=== PATIENT | female | born 1985 | race Caucasian/White ===

== ENCOUNTER 2017-03-19 05:55 | Day surgery (SDC) | payer BC, SELFPAY ==
[~2017-03-19] VITALS: Ht 172.7 cm; Wt 157.8 kg
[~2017-03-19 05:55] MED LIST: AZITHROMYCIN250 MG; CHERATUSSIN AC118 ML PO; LEXAPRO20 MG PO; METFORMIN HCL500 M2; PREDNISONE20 MG PO
--- NOTE | 2017-03-19 08:56 | NUR ---
03/19/17 0855 Flavia Cronin report from irrigation specialist.
--- NOTE | 2017-03-19 09:46 | NUR ---
PUDDING AND ICED WATER GIVEN. PAM MORAN ON WARM. MOTHER @ BS. PT TEARFUL UPON ARRIVAL BACK TO .
--- NOTE | 2017-03-19 09:55 | NUR ---
PT AWAKE AND ALERT TALKING W/MOTHER. FOSTER CATHETER BALLOON DEFLATED W/10 ML NS AND FOSTER DC WNL. SMALL AMOUNT OF BLOOD NOTED ON END OF FOSTER LUMEN. PT EATS PUDDING AND TOLERATES IT WELL.
--- NOTE | 2017-03-19 10:22 | NUR ---
PT UP TO BR AFTER PLACING OWN UNDERWEAR. PT AMBULATES TO BR WELL. PT VOIDS 400 ML PINK COLORED URINE AND IS BACK IN BED. PAM HUGGER CONTINUES ON WARM AND SCDS ON.
--- NOTE | 2017-03-19 10:51 | NUR ---
MORE ICED WATER GIVEN.
--- NOTE | 2017-03-19 11:45 | NUR ---
amb well to br voids 400 mls pink urine. returned to bed has family assist.
[2017-03-19] MEDS ORDERED: MOTRIN IB200 MG PO (12:05)
[2017-03-19] MEDS ORDERED: NORCO 5-325 TA1 EACH PO (12:05)
--- NOTE | 2017-03-19 12:25 | NUR ---
LE 1215: PT DRESSES SELF W/ASSIST OF MOTHER. PT AMBULATES TO THE BR AND VOIDS 500 ML PALE PINK URINE. PT TRANSFERS SELF FROM BED TO WELL AND IS DC HOME W/MOTHER AFTER VERBAL DC INSTRUCTIONS ARE GIVEN AND BOTH PT AND MOTHER VERBALIZE UNDERSTANDING.
--- NOTE | 2017-04-08 12:43 | OR ---
[facility] [address] [place], [place] [address] Signed PREOPERATIVE DIAGNOSES Abnormal uterine bleeding. Dysmenorrhea. Morbid obesity. POSTOPERATIVE DIAGNOSES Extensive deep infiltrating endometriosis. Abnormal uterine bleeding. Dysmenorrhea. Morbid obesity. PROCEDURES PERFORMED Hysteroscopy. Dilation and curettage. Diagnostic laparoscopy. SURGEON: Delisa Hurley DO ALUM OPERATOR: Puneet Thurston MD ANESTHESIA: General. ESTIMATED BLOOD LOSS: 5 mL. SPECIMENS: Endometrial curettings. FINDINGS Normal external genitalia. Small well-supported cervix with uterine length of 11 cm. On hysteroscopy, normal-appearing endometrium and uterine cavity with normal bilateral tubal ostia. On laparoscopy, there was an extensive deep infiltrating endometriosis throug hout the pelvis with most concerning lesions over the bladder at the descending colon. The cul-de-sac bilateral ovarian fossa. COMPLICATIONS: None. INDICATIONS Ms. Oconnor is a pleasant 31-year-old G0 white female, who presents with a history of heavy painful periods. This started in her early teens. The pain started several days prior to her period and lasts until the end of the bleeding. She also complains of severe dyspareunia and she has been told in the past that she likely has endometriosis, but has never undergone diagnostic laparoscopy. Decision was made to take the patient for hysteroscopy, D and C, and diagnostic laparoscopy. Risks, benefits, alternatives Electronically Signed By: DELISA HURLEY DO 04/08/17 1243 PATIENT NAME: CARMEL OCONNOR OPERATIVE REPORT DATE OF : [birth year] PHYSICIAN: DELISA HURLEY DO REPORT #: [id number] REPORT IS CONFIDENTIAL AND NOT TO BE RELEASED WITHOUT AUTHORIZATION [facility] [address] [place], [place] [address] Signed were discussed in detail with the patient. Patient understands the risks and wished to proceed with the procedure. TECHNIQUE The patient was taken the operating room. Time-out was performed to confirm correct patient, correct procedure and general anesthesia was adequately established. Patient was prepped and draped in dorsal lithotomy position and yellow fin stirrups. ICPs on and running, and no preop antibiotics were indicated per skip protocol. A weighted speculum was placed in the vagina and the anterior lip of the cervix was grasped with single-tooth tenaculum. The cervix was gently dilated using Hegar dilators and an operative hysteroscope was placed into the cervical os and advanced under direct visualization to the uterine cavity. Normal appearing uterine cavity and endometrium were observed. Uterine length was 11 cm. A biopsy of the endometrium was performed using MyoSure like device and this was sent to Pathology for further evaluation. The hysteroscope was withdrawn and a uterine manipulator was placed. A Shen catheter had been inserted at the beginning of the procedure. The surgeon's gloves were changed and the attention was turned to the abdomen. The base of the umbilicus was infiltrated with 5 mL of 0.25% Marcaine with epinephrine. A 5-mm incision was made at the base of the umbilicus and a 5-mm trocar was placed under direct visualization. This was accomplished by placing bilateral penetrating towel clamps, elevating the umbilicus and advancing under direct visualization. This was made difficult due to the patient's obesity; however, no complication was noted. After pneumoperitoneum was established, a survey of the abdomen and pelvis was performed. Extensive deep infiltrating endometriosis was noted throughout the pelvis. However, especially concentrated over the bladder in the descending colon at the cul-de-sac and bilateral ovarian fossa. The appendix was unable to be visualized and decision was made to not place additional trocars as excision of endometriosis was not going to be attempted at this time. There was a simple appearing cyst on the left ovary approximately 2 cm in diameter. The upper abdomen appears normal. Pneumoperitoneum was reduced, the trocar is removed and trocar site was repaired with 4-0 Monocryl in a subcuticular stitch. Opsite was applied as a dressing. The uterine manipulator was removed and the cervix was examined and found to be hemostatic. The patient was taken the PACU in good stable condition. Sponge, needle, and instrument count was correct at the end of the procedure. Dr. Puneet Thurston was present and participated in all portions of procedure. Delisa Hurley DO JDW/Modl Electronically Signed By: DELISA HURLEY DO 04/08/17 1243 PATIENT NAME: CARMEL OCONNOR GRIFFIN OPERATIVE REPORT DATE OF : 86 PHYSICIAN: DELISA HURLEY DO REPORT #: [id number] REPORT IS CONFIDENTIAL AND NOT TO BE RELEASED WITHOUT AUTHORIZATION [facility] [address] [place] [address] Signed /[id number] cc: MD Genevieve Donahue PA-C Electronically Signed By: DELISA HURLEY DO 04/08/17 1243 PATIENT NAME: ELVINCARMEL OPERATIVE REPORT DATE OF : 87 PHYSICIAN: DELISA HURLEY DO REPORT #: [id number] REPORT IS CONFIDENTIAL AND NOT TO BE RELEASED WITHOUT AUTHORIZATION
== END 2017-03-19 12:20 | disposition home or self-care (01) ==
LOC: DS 05:55
PROVIDERS: Obstetrics & Gynecology
PROC: 0UDB8ZX Extraction of Endometrium, Via Natural or Artificial Opening Endoscopic, Diagnostic (ICD-10-PCS; principal; 2017-03-19 06:45)
PROC: 0WJP4ZZ Inspection of Gastrointestinal Tract, Percutaneous Endoscopic Approach (ICD-10-PCS; 2017-03-19 06:45)
DX: N93.9 Abnormal uterine and vaginal bleeding, unspecified (principal); E66.01 Morbid (severe) obesity due to excess calories; Z68.43 Body mass index [BMI] 50.0-59.9, adult; F32.9 Major depressive disorder, single episode, unspecified; G40.909 Epilepsy, unspecified, not intractable, without status epilepticus
CPT/HCPCS: 00952; 84703; J0330; J1100; J2250; J2405; J2704; J3010; J7120

== ENCOUNTER 2018-09-10 11:02 | Inpatient (IN) | payer OTHER ==
[~2018-09-10 11:02] MED LIST changes: +MOTRIN IB200 MG PO; +NORCO 5-325 TA1 EACH PO
--- NOTE | 2018-09-10 13:14 | PR ---
[facility] [address] [place], [place] [address] Signed Progress Notes IP Datetime Report Generated by CPN: 09/10/2018 13:14 PROGRESS NOTES: [id number] Impression: Reassuring heart rate Procedures: Sterile Vag Exam Plan: Deliver- Section Informed Consent Obtain: Section Delivery; Risks, Benefits and Alternatives Discussed VITAL SIGNS: [id number] Vital Signs: Reviewed VS Notable Details: BPs no longer severe range. EXAM: [id number] Dilatation: 0.0 Effacement: 0 Station: -4 Uterine Contractions: none MEMBRANES: [id number] Membrane Status: Intact Comments: BPs controlled w/ labetalol. No JONES, RUQ pain, or visual changes. Serologies returned and normal. Cervix unfavorable, head not well applied, and unstable lie. Recommend primary LTCS. Reviewed risks/benefits/alternatives in detail w/ pt. Pt understands and agrees. Fetus A: [id number] FHR Baseline: 130 Variability: Moderate 6-25bpm Accelerations: None Decelerations: None FHR Category: Category I Presentation: Vertex Other Presentation: Unstable lie Comments on Fetus A: No evidence of metabolic acidosis Fetus B: [id number] Signing Physician: Delisa Hurley DO Copies: ~ *Electronically Signed* 09/10/18 1313 DELISA HURLEY DO PATIENT NAME: CARMEL OCONNOR PROGRESS NOTE DATE OF : 87 PHYSICIAN: DELISA HURLEY DO RPT #: [id number] REPORT IS CONFIDENTIAL AND NOT TO BE RELEASED WITHOUT AUTHORIZATION
--- NOTE | 2018-09-10 13:35 | PR ---
[facility] [address] [facility] [place], [place] [address] Signed Progress Notes IP Datetime Report Generated by CPN: 09/10/2018 13:35 PROGRESS NOTES: [id number] Impression: Reassuring heart rate Procedures: Sterile Vag Exam Plan: Continue present management Informed Consent Obtain: Section Delivery; Risks, Benefits and Alternatives Discussed VITAL SIGNS: [id number] Vital Signs: Reviewed VS Notable Details: BPs again elevated into severe range EXAM: [id number] Dilatation: 0.0 Effacement: 0 Station: -4 Uterine Contractions: none MEMBRANES: [id number] Membrane Status: Intact Comments: BPs elevated. Will give labetalol 80mg IV now. No JONES, RUQ pain, or visual changes. Preparing for C/S soon. Fetus A: [id number] FHR Baseline: 130 Variability: Moderate 6-25bpm Accelerations: 15X15 Decelerations: None FHR Category: Category I Presentation: Vertex Other Presentation: Unstable lie Comments on Fetus A: No evidence of metabolic acidosis Fetus B: [id number] Signing Physician: Delisa Hurley DO Copies: ~ *Electronically Signed* 09/10/18 8732 DELISA HURLEY DO PATIENT NAME: CARMEL OCONNOR PROGRESS NOTE DATE OF : [birth year] PHYSICIAN: DELISA HURLEY DO RPT #: [id number] REPORT IS CONFIDENTIAL AND NOT TO BE RELEASED WITHOUT AUTHORIZATION
--- NOTE | 2018-09-10 15:25 | NUR ---
09/10/18 [facility] [address] - PT ARRIVES IN ROOM 104 ON FBC FROM OR. PT ON RA WITH SATS 100%. RESP EVEN, UNLABORED. FF @ U WITH LIGHT BLEEDING NOTED. PT DENIES PAIN/NAUSEA. PT PROVIDED WITH WARM BLANKETS AND FRESH ZIGGY PAD. FAMILY IN ROOM.
--- NOTE | 2018-09-10 17:41 | PR ---
[facility] [address] [facility] [place], [place] [address] Signed PP Progress Notes Datetime Report Generated by CPN: 09/10/2018 17:41 SUBJECTIVE: [id number] Pain: Within normal limits Nausea/Vomiting: Denies Flatus: No Bowel Movement: No Vital Signs: [id number] Vital Signs: Reviewed; Within Normal Limits Notable Details: No recent severe BPs. EXAM: [id number] Cardiovascular: Normal Respiratory: Normal Abdomen/Uterus: Normal Lochia: Normal Vulva/Perineum: Not Done Breasts: Not Done CVA Tenderness: Normal Extremities: Normal Exam Comments: Fundus firm U-2 nontender IMPRESSION/PLAN/PROCEDURES: [id number] Impression: Induced Hypertension Progress Notes: Pt seen and evaluated. Doing well. BPs controlled. No JONES, RUQ pain, or visual changes. Mag @ 2g/hr. Good urine output. Will continue to monitor pressures, labs, and progress. Signing Physician: Delisa Hurley DO Copies: ~ *Electronically Signed* 09/10/18 1742 DELISA HURLEY DO PATIENT NAME: CARMEL OCONNOR GRIFFIN PROGRESS NOTE DATE OF : 86 PHYSICIAN: DELISA HURLEY DO RPT #: [id number] REPORT IS CONFIDENTIAL AND NOT TO BE RELEASED WITHOUT AUTHORIZATION
--- NOTE | 2018-09-11 08:44 | PR ---
[facility] [address] [place], [place] [address] Signed PP Progress Notes Datetime Report Generated by CPN: 09/11/2018 08:44 SUBJECTIVE: [id number] Pain: Within normal limits Nausea/Vomiting: Denies Flatus: Yes Bowel Movement: No Vital Signs: [id number] Vital Signs: Reviewed Notable Details: BPs controlled overnight with one severe range BP. Good urine output. EXAM: [id number] Cardiovascular: Normal Respiratory: Normal Abdomen/Uterus: Normal Lochia: Normal Vulva/Perineum: Not Done Breasts: Not Done CVA Tenderness: Normal Extremities: Normal Incision: Normal Progress: Abnormal Exam Comments: Fundus difficult to palpate due to obesity. Incision well healing w/ anette in place. IMPRESSION/PLAN/PROCEDURES: [id number] Impression: Induced Hypertension Plan: Continue present management Progress Notes: Pt seen and examined. Doing well. Mag therapeutic, blood pressures improved. Pt did have transient decrease in plts overnight but now improved. LFTs and creat normal. Good urine output. No JONES, RUQ pain, or visual changes. Appears PreE is much improved; will likely be able to d/c mag @ 14:00 today as planned. w/ some difficulties and is working closely w/ RN for support. Incision healing well, and pain and bleeding scant. All questions answered. Signing Physician: Delisa Hurley DO Copies: ~ *Electronically Signed* 09/11/18 0844 DELISA HURLEY DO PATIENT NAME: CARMEL OCONNOR GRIFFIN PROGRESS NOTE DATE OF : 86 PHYSICIAN: DELISA HURLEY DO RPT #: [id number] REPORT IS CONFIDENTIAL AND NOT TO BE RELEASED WITHOUT AUTHORIZATION
--- NOTE | 2018-09-12 12:37 | PR ---
[facility] [address] [place], [place] [address] Signed PP Progress Notes Datetime Report Generated by CPN: 09/12/2018 12:37 SUBJECTIVE: [id number] Pain: Within normal limits Nausea/Vomiting: Denies Flatus: Yes Bowel Movement: Yes Vital Signs: [id number] Vital Signs: Reviewed Notable Details: two severe range bps last night while pt active; Much improved today. EXAM: [id number] Cardiovascular: Normal Respiratory: Normal Abdomen/Uterus: Normal Lochia: Normal Vulva/Perineum: Not Done Breasts: Not Done CVA Tenderness: Normal Extremities: Normal Incision: Normal Progress: Normal Exam Comments: Fundus difficult to palpate due to body habitus. Incision well healing w/ anette in place. Pt up to chair w/ IMPRESSION/PLAN/PROCEDURES: [id number] Impression: Normal progression; Induced Hypertension Plan: Continue present management Progress Notes: Pt seen and examined. Doing well. Ambulating, voiding, and tolerating full diet. Pain and lochia minimal. and bottlefeeding and working closely w/ RN for support. No fevers/chills/lightheadedness. No JONES, RUQ pain, or visual changes. No other concerns. Anticipate d/c home tomorrow w/ BP check 48 hr after discharge. Likely will not have to start oral hypertensives, but will continue to monitor. All questions answered Signing Physician: Delisa Hurley DO Copies: ~ *Electronically Signed* 09/12/18 1843 DELISA HURLEY DO PATIENT NAME: OCONNORCARMEL LEE PROGRESS NOTE DATE OF : 86 PHYSICIAN: DELISA HURLEY #: [id number] REPORT IS CONFIDENTIAL AND NOT TO BE RELEASED WITHOUT AUTHORIZATION
--- NOTE | 2018-09-13 10:24 | PR ---
[facility] [address] [place], [place] [address] Signed PP Progress Notes Datetime Report Generated by CPN: 09/13/2018 10:24 SUBJECTIVE: [id number] Pain: Within normal limits Nausea/Vomiting: Denies Flatus: Yes Bowel Movement: Yes Vital Signs: [id number] Vital Signs: Reviewed Notable Details: BPs somewhat labile EXAM: [id number] Cardiovascular: Normal Respiratory: Normal Abdomen/Uterus: Normal Lochia: Normal Vulva/Perineum: Not Done Breasts: Not Done CVA Tenderness: Normal Extremities: Normal Incision: Normal Progress: Normal Exam Comments: Fundal exam limited by obesity. Incision well healing w/ anette in place IMPRESSION/PLAN/PROCEDURES: [id number] Impression: Normal progression; Induced Hypertension Plan: Discharge Progress Notes: Pt seen and examined. Doing well. Ambulating, voiding, and tolerating full diet. Pain and lochia minimal. No JONES, RUQ pain, or visual changes. BPs somewhat labile. No fevers/chills or other concerns. Unsure of pp contraception, but not currently sexually active. Desires d/c home today. Plan: d/c home. Return to office in 2 days for BP check and staple removal. Start procardia XL 30 mg daily. Reviewed s/sx of preE, and VTE. All questions answered. Mother very supportive Signing Physician: Delisa Hurley DO Copies: *Electronically Signed* 09/13/18 [facility] DELISA HURLEY DO PATIENT NAME: CARMEL OCONNOR PROGRESS NOTE DATE OF : 86 PHYSICIAN: DELISA HURLEY DO RPT #: [id number] REPORT IS CONFIDENTIAL AND NOT TO BE RELEASED WITHOUT AUTHORIZATION [address] [place] [address] Signed ~ *Electronically Signed* 09/13/18 [facility] DELISA HURLEY DO PATIENT NAME: CARMEL OCONNOR PROGRESS NOTE DATE OF : [birth year] PHYSICIAN: DELISA HURLEY DO RPT #: [id number] REPORT IS CONFIDENTIAL AND NOT TO BE RELEASED WITHOUT AUTHORIZATION
--- NOTE | 2018-10-24 11:38 | OR ---
[address] [address] Signed DATE OF OPERATION: 09/10/2018 SURGEON: Delisa Hurley DO PREOPERATIVE DIAGNOSES: 1. Intrauterine at 36 weeks and 1 day gestation. 2. Preeclampsia with severe features. 3. Polyhydramnios with unstable lie. 4. Morbid obesity. 5. Unfavorable cervix. POSTOPERATIVE DIAGNOSES: 1. Intrauterine at 36 weeks and 1 day gestation. 2. Preeclampsia with severe features. 3. Polyhydramnios with unstable lie. 4. Morbid obesity. 5. Unfavorable cervix. PROCEDURES PERFORMED: Primary low transverse delivery. FRAME CHANGER: Shreya Jensen MD. ANESTHESIA: Spinal. ESTIMATED BLOOD LOSS: 500 mL. COMPLICATIONS: None. SPECIMENS: None. FINDINGS: Viable female born in the KATRINA position with subjective polyhydramnios. Apgars 8 and 9 at one and five minutes respectively and weight 6 pounds 12 ounces. Estimated blood loss 500 mL. Normal tubes and ovaries. Electronically Signed By: DELISA HURLEY DO 10/24/18 1138 PATIENT NAME: CARMEL OCONNOR OPERATIVE REPORT DATE OF : 87 REPORT #: [id number] PHYSICIAN: DELISA HURLEY DO PCP: DELISA HURLEY DO REPORT IS CONFIDENTIAL AND NOT TO BE RELEASED WITHOUT AUTHORIZATION [address] [address] Signed INDICATIONS: Ms. Oconnor is a pleasant 32-year-old G1, P0, with IUP at 36 weeks and 1 day gestation, who presented to Labor and Delivery for a scheduled nonstress test due to polyhydramnios. She was seen in the office yesterday and had normal blood pressures and no proteinuria. Upon presentation to Labor and Delivery today for NST, the patient was noted to have persistent severe range blood pressures that were resistant to IV labetalol. Blood pressures were finally controlled with 80 mg of labetalol IV. Otherwise, the patient was asymptomatic. She had no headache, right upper quadrant pain, or visual changes. Labs were normal. The patient had been breech earlier this week, but bedside ultrasound was performed that demonstrated cephalic positioning. Cervix was closed, thick, and high, and head was not well applied. Decision was made to proceed with primary low transverse delivery due to new onset severe blood pressures consistent with severe preeclampsia, unfavorable cervix, and variable lie. Risks, benefits, and alternatives were discussed in detail with the patient. The patient understands and wishes to proceed with the procedure. She was given magnesium per protocol preoperatively. TECHNIQUE: The patient was taken to the operating room where a time-out was performed to confirm correct patient and correct procedure. Again, blood pressures were well controlled with IV labetalol and magnesium sulfate had been bolused and was running. Spinal anesthesia was adequately established and the patient was prepped and draped in the supine position with a bump under the right hip. Ancef 3 g was given preoperatively per SCIP protocol and heparin 5000 units given as well. ICPs were on and running and a Shen catheter had been inserted. Once spinal anesthetic was found to be adequate, a Pfannenstiel skin incision was made using a surgical scalpel. Incision was carried down to the fascia and the fascia was nicked in medial to midline. Fascial incision was extended bilaterally using curved Mckay scissors. Small amount of bleeding was made hemostatic with Bovie electrocautery. The fascia was grasped with Kochers, elevated, underlying rectus muscles were dissected bluntly and sharply. The rectus muscles were then divided in the midline. The peritoneum was entered bluntly. Peritoneal incision was extended cephalad and caudad using Mckay scissors. Survey of the abdomen and pelvis was performed, and no intraabdominal adhesions were noted. An Malcolm self retractor was placed. Lower uterine segment identified. Hysterotomy was performed using a surgical scalpel. Small amount of bleeding was noted and Allis clamps were placed and elevated and hysterotomy was completed. Amniotic sac was seen with clear fluid. The amniotic sac was then ruptured. The surgeon's hand was placed into the lower uterine segment after the hysterotomy was extended bilaterally using blunt dissection and the head was Electronically Signed By: DELISA HURLEY DO 10/24/18 1138 PATIENT NAME: CARMEL OCONNOR OPERATIVE REPORT DATE OF : 86 REPORT #: [id number] PHYSICIAN: DELISA HURLEY DO PCP: DELISA HURLEY DO REPORT IS CONFIDENTIAL AND NOT TO BE RELEASED WITHOUT AUTHORIZATION [address] [address] Signed elevated into the abdomen. Delivery of the head was accomplished with assistance of fundal pressure. No nuchal cord was noted. Baby delivered in a KATRINA position. Remainder of the baby delivered easily. Large amount of clear amniotic fluid was noted consistent with polyhydramnios. was vigorous and cried at delivery. Cord was doubly clamped and cut. The was handed to awaiting pediatric team for further care. Cord blood was obtained for routine analysis as well as a segment of the cord. The placenta was then expressed intact with a centrally inserted three-vessel cord. The uterus was cleared of all remaining products of conception or clot and noted to be firm. Pitocin was given per protocol to enhance uterine involution. Hysterotomy was then repaired using 0 Vicryl in a running locked manner again using 0 Vicryl. The second vertical imbricating layer of 0 Vicryl was applied with good hemostasis and imbrication. Small amount of oozing was noted. This was made hemostatic with Bovie electrocautery and one svmakl-[id number]-gqwmy of 0 Vicryl. The pelvis was irrigated and found to be hemostatic. Arixtra was then applied to lower uterine segment to ensure hemostasis. Tubes and ovaries were examined bilaterally and found to be normal. The Malcolm retractor was removed and the lower uterine segment again noted to be hemostatic. ACell sheet was applied to the lower uterine segment and peritoneum was then reapproximated using 2-0 Vicryl in a running nonlocked manner. The rectus muscles were examined, found to be hemostatic and these were reapproximated using 0 Vicryl and three loose interrupted sutures. ACell powder and remaining Arixtra were applied to the rectus sheath with good hemostasis noted. Fascia was then reapproximated using 0 Vicryl in a running nonlocked manner. Subcu was irrigated and found to be hemostatic after use of Bovie electrocautery. Subcu was reapproximated using 2-0 Vicryl in 2 separate layers with good hemostasis noted. Skin was then reapproximated using surgical anette. The uterus was then Crede'd for small amount of blood. The patient was then taken to PACU in good and stable condition. Of note, blood pressures were well controlled throughout surgery without additional IV labetalol needed. Sponge, needle, and instrument count was correct x2 at the end of procedure. Dr. Jensen was present and participated in all portions of the procedure. Delisa Hurley DO JDW/MODL /[id number] Electronically Signed By: DELISA HURLEY DO 10/24/18 1138 PATIENT NAME: OCONNORCARMEL OPERATIVE REPORT DATE OF : 86 REPORT #: [id number] PHYSICIAN: DELISA HURLEY DO PCP: DELISA HURLEY DO REPORT IS CONFIDENTIAL AND NOT TO BE RELEASED WITHOUT AUTHORIZATION [address] [place] [address] Signed Copies: ~ Electronically Signed By: DELISA HURLEY DO 10/24/18 1138 PATIENT NAME: ELVINCARMEL OPERATIVE REPORT DATE OF : 86 REPORT #: [id number] PHYSICIAN: DELISA HURLEY DO PCP: DELISA HURLEY DO REPORT IS CONFIDENTIAL AND NOT TO BE RELEASED WITHOUT AUTHORIZATION
== END 2018-09-13 15:40 | disposition home or self-care (01) | DRG 788 ==
LOC: FBCO 11:02 → FBC 12:15
PROVIDERS: ADMIT Obstetrics & Gynecology
PROC: 10D00Z1 Extraction of Products of Conception, Low, Open Approach (ICD-10-PCS; principal; 2018-09-10 14:00)
DX: O14.94 Unspecified pre-eclampsia, complicating childbirth (principal); Z3A.36 36 weeks gestation of pregnancy; Z37.0 Single live birth; O40.3XX0 Polyhydramnios, third trimester, not applicable or unspecified; O99.214 Obesity complicating childbirth; E66.01 Morbid (severe) obesity due to excess calories; O32.0XX0 Maternal care for unstable lie, not applicable or unspecified; O60.14X0 Preterm labor third trimester with preterm delivery third trimester, not applicable or unspecified; O99.824 Streptococcus B carrier state complicating childbirth; O36.63X0 Maternal care for excessive fetal growth, third trimester, not applicable or unspecified; O99.344 Other mental disorders complicating childbirth; F41.9 Anxiety disorder, unspecified; O99.324 Drug use complicating childbirth; F12.90 Cannabis use, unspecified, uncomplicated; O99.52 Diseases of the respiratory system complicating childbirth; J45.909 Unspecified asthma, uncomplicated
CPT/HCPCS: 01961; 36415; 59025; 80053; 82570; 83735; 84156; 84550; 85025; C1763; J0690; J1644; J1650; J1885; J2274; J2370; J2405; J2590; J3010; J3475; J7120

== ENCOUNTER 2019-03-03 07:05 | Day surgery (SDC) | payer OTHER ==
[~2019-03-03] VITALS: Ht 172.7 cm; Wt 173.3 kg
[~2019-03-03 07:05] MED LIST changes: +PRENATAL VITAM1 EAC8 PO; +VITAMIN D10000 UNIT PO; +ZOLOFT100 MG PO
[2019-03-03] MEDS ORDERED: KEFLEX500 MG PO (07:21)
--- NOTE | 2019-03-09 11:45 | OR ---
[facility] [address] [place], [place] [address] Signed DATE OF OPERATION: 03/03/2019 SURGEON: Delisa Hurley DO PREOPERATIVE DIAGNOSES: 1. Malpositioned IUD. 2. Morbid obesity with BMI of 58. POSTOPERATIVE DIAGNOSES: 1. Malpositioned IUD. 2. Morbid obesity with BMI of 58. PROCEDURE PERFORMED: Hysteroscopic removal of malpositioned IUD. ASSOCIATE SCHOOL PSYCHOLOGIST: Puneet Thurston MD for retraction. ANESTHESIA: General. ESTIMATED BLOOD LOSS: 0 mL. FINDINGS: Morbid obesity. Excellent apical support of the vagina. Normal vagina and cervix. On hysteroscopy, IUD strings noted 1-2 cm into the cervical canal. The IUD is noted low and lateral in the uterine cavity with one arm slightly embedded into the endometrium/myometrium. The IUD was easily removed with hysteroscopic graspers. HEMOSTASIS: At the end of the procedure. COMPLICATIONS: None. INDICATIONS: Ms. Oconnor is a pleasant 33-year-old, G1, P1 white female who had an IUD placed . She has not been sexually active since delivery. One month IUD followup visit, IUD strings were not seen. An ultrasound was performed that demonstrated Electronically Signed By: DELISA HURLEY DO 03/09/19 1145 PATIENT NAME: CARMEL OCONNOR OPERATIVE REPORT DATE OF : 87 REPORT #: [id number] PHYSICIAN: DELISA HURLEY DO PCP: ESTEFANIA LOPEZ MD REPORT IS CONFIDENTIAL AND NOT TO BE RELEASED WITHOUT AUTHORIZATION [facility] [address] [facility] [place] [place] [address] Signed malpositioning of the IUD. Attempts to remove it in the office were unsuccessful and decision was made to proceed with hysteroscopic removal of malpositioned IUD. Risks, benefits, and alternatives were discussed in detail with the patient. The patient understands and wished to proceed with the procedure. DESCRIPTION OF PROCEDURE: The patient was taken to the operating room where a time-out was performed to confirm correct patient and correct procedure. General anesthesia was adequately established. The patient was prepped and draped in the dorsal lithotomy position with the feet in Yellowfin stirrups. ICPs were on running and no preop antibiotics or heparin were indicated. A Fenton retractor was placed in the vagina and the anterior lip of the cervix was grasped with a long Allis clamp. The cervix was gently dilated using Hegar dilators to a #7. An operative hysteroscope was placed in the cervical os and advanced under direct visualization. Approximately 1-2 cm into the cervical canal, IUD strings were observed. The hysteroscope was slowly inserted along the cervical canal into the uterine cavity. The IUD was noted low and lateral in the uterine cavity with the left arm slightly embedded into the endometrium/myometrium. Hysteroscopic graspers were placed through the operative port of the hysteroscope. The base of the IUD was grasped, and the hysteroscope and IUD were withdrawn. The IUD was noted to be intact and was removed. This was not sent to pathology. The cervix was found to be hemostatic and the patient was taken to the PACU in good and stable condition after removing the Allis clamp. Sponge and instrument count was correct at the end the procedure. Dr. Thurston was present and participated for retraction that was necessary due to the patient's BMI. Delisa Hurley DO JDW/MODL /[id number] Copies: ~ Electronically Signed By: DELISA HURLEY DO 03/09/19 1145 PATIENT NAME: CARMEL OCONNOR OPERATIVE REPORT DATE OF : 87 REPORT #: [id number] PHYSICIAN: DELISA HURLEY DO PCP: ESTEFANIA LOPEZ MD REPORT IS CONFIDENTIAL AND NOT TO BE RELEASED WITHOUT AUTHORIZATION
== END 2019-03-03 11:00 | disposition home or self-care (01) ==
LOC: OPS 07:05 → DS 07:05 → OPS 08:45
PROVIDERS: Obstetrics & Gynecology
PROC: 0UC98ZZ Extirpation of Matter from Uterus, Via Natural or Artificial Opening Endoscopic (ICD-10-PCS; principal; 2019-03-03 08:45)
DX: T83.39XA Other mechanical complication of intrauterine contraceptive device, initial encounter (principal); E66.01 Morbid (severe) obesity due to excess calories; F32.9 Major depressive disorder, single episode, unspecified; E55.9 Vitamin D deficiency, unspecified; J45.909 Unspecified asthma, uncomplicated; F41.9 Anxiety disorder, unspecified; Z68.43 Body mass index [BMI] 50.0-59.9, adult; Z79.899 Other long term (current) drug therapy
CPT/HCPCS: 00940; J1100; J1885; J2250; J2405; J2704; J2765; J3010; J7120

== ENCOUNTER 2022-02-18 18:31 | Emergency (ER) | payer OTHER ==
[~2022-02-18] VITALS: Ht 172.7 cm; Wt 173.3 kg
[~2022-02-18 18:31] MED LIST changes: +KEFLEX500 MG PO
[2022-02-18] MEDS ORDERED: ARIPIPRAZOLE5 MG PO (19:05)
[2022-02-18] MEDS ORDERED: LISINOPRIL10 MG PO (19:05)
[2022-02-18] MEDS ORDERED: BUSPIRONE HCL15 MG PO (19:05)
[2022-02-18] MEDS ORDERED: NORETHINDRONE AC5 MG PO (19:05)
[2022-02-18] MEDS ORDERED: TRAZODONE HCL100 MG PO (19:05)
[2022-02-18] MEDS ORDERED: MINOCYCLINE HCL50 M1 PO (19:05)
[2022-02-18] MEDS ORDERED: ATIVAN0.5 MG PO (21:50)
== END 2022-02-18 21:58 | disposition home or self-care (01) ==
LOC: ED 18:31
DX: G40.109 Localization-related (focal) (partial) symptomatic epilepsy and epileptic syndromes with simple partial seizures, not intractable, without status epilepticus (principal); Z79.899 Other long term (current) drug therapy
CPT/HCPCS: 36415; 70450; 80053; 81001; 82553; 83690; 84146; 84703; 85025; 96374; 99284-25; J2060

== ENCOUNTER 2023-02-16 12:04 | Emergency (ER) | payer OTHER ==
[~2023-02-16] VITALS: Ht 172.7 cm; Wt 193.2 kg
[~2023-02-16 12:04] MED LIST changes: +ARIPIPRAZOLE5 MG PO; +ATIVAN0.5 MG PO; +BUSPIRONE HCL15 MG PO; +LISINOPRIL10 MG PO; +MINOCYCLINE HCL50 M1 PO; +NORETHINDRONE AC5 MG PO; +TRAZODONE HCL100 MG PO
[2023-02-16] MEDS ORDERED: TOPIRAMATE100 MG PO (12:10)
[2023-02-16 14:09] VITALS: BP 142/83
== END 2023-02-16 14:05 | disposition home or self-care (01) ==
LOC: ED 12:04
DX: R56.9 Unspecified convulsions (principal); Z79.899 Other long term (current) drug therapy
CPT/HCPCS: 80053; 85025; 99284; G0480

== ENCOUNTER 2023-05-31 10:36 | Emergency (ER) | payer OTHER ==
[~2023-05-31] VITALS: Ht 172.7 cm; Wt 189.6 kg
[~2023-05-31 10:36] MED LIST changes: +TOPIRAMATE100 MG PO
[2023-05-31 12:41] VITALS: BP 148/98
[2023-06-01 09:47] LABS: TOPIRAMATE 11.6 ug/mL (5.0-20.0)
== END 2023-05-31 12:41 | disposition home or self-care (01) ==
LOC: ED 10:36
PROVIDERS: Emergency Medicine
DX: G40.909 Epilepsy, unspecified, not intractable, without status epilepticus (principal); S00.512A Abrasion of oral cavity, initial encounter; Z79.899 Other long term (current) drug therapy
CPT/HCPCS: 36415; 80053; 80201; 85025; 99284; G0480

== ENCOUNTER 2023-08-17 11:25 | Emergency (ER) | payer OTHER ==
[~2023-08-17] VITALS: Ht 172.7 cm; Wt 185.1 kg
--- OUTSIDE RECORDS SUMMARY | 2023-08-17 11:28 | XMS ---
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 Press Leader Events No recent Security Events currently on file CRITERIA MET - [facility] CARE PROVIDERS -Rob- Dentist: Sow Farm Barn Technician [facility] PHONE: [phone] DAMON BELTRAN Manager Agency Current PHONE: Unknown BEATRIS LOMBARDI Registered Nurse Current PHONE: Unknown NEENA SPENCER Nurse Practitioner: Family Current PHONE: Unknown Cheyenne has no Care Guidelines for this patient. Brad VISIT COUNT (12 MO.) 3 [facility] [place] TOTAL 3 NOTE: Visits indicate total known visits. ED/UCC VISIT TRACKING (12 MO.) 08/17/2023 11:27 [facility] [place] TYPE: Emergency COMPLAINT: - DIFFICULTY BREATHING, LOW 02 SATS 05/31/2023 10:37 [facility] [place] [place] TYPE: Emergency COMPLAINT: - SEIZURE DIAGNOSES: - Abrasion of oral cavity, initial encounter - Epilepsy, unspecified, not intractable, without status epilepticus - Other generalized epilepsy and epileptic syndromes, not intractable, without status epilepticus - Other [facility] (current) drug therapy - Unspecified convulsions 02/16/2023 12:05 [facility] [place] TYPE: Emergency COMPLAINT: - SEIZURE DIAGNOSES: - Other computer terminal operator (current) drug therapy - Unspecified convulsions INPATIENT VISIT TRACKING (12 MO.) No inpatient visits to display in this time frame [id number]
[2023-08-17] MEDS ORDERED: PHENYTOIN SODI100 MG PO (13:29)
[2023-08-17 14:07] LABS: BASOPHILS 0.7 % (0-2); EOSINOPHILS 1.8 % (0-6); HEMATOCRIT 45.5 % (35.0-50.0); HEMOGLOBIN 15.2 g/dL (12.0-18.0); LYMPHOCYTES 30.5 % (24-44); MCH 27.8 (27-36); MCHC 33.4 g/dl (30-36); MCV 83.1 fl (81-99); MONOCYTES 6.6 % (0-12); NEUTROPHILS 60.4 % (39-80); PLATELET COUNT 250 K/uL (140-440); RBC 5.47 M/ul (4.3-5.7); RDW 14.9 (10.5-15.0)
[2023-08-17 14:20] LABS: ALBUMIN 3.7 g/dL (3.4-5.0); ALBUMIN/GLOBULIN RATIO 0.97 (1.1-2.4); ANION GAP 17.5 (7-21); BILIRUBIN, TOTAL 0.4 ng/dL (0.2-1.0); BUN/CREATININE RATIO 15.38 (6.0-28.6); CALCIUM 9.2 mg/dL (8.5-10.1); CREATININE, SERUM 0.91 mg/dL (0.55-1.02); MAGNESIUM 2.1 mg/dL (1.8-2.4); POTASSIUM 4.5 mmol/L (3.5-5.1); PROTEIN, TOTAL 7.5 g/dL (6.4-8.2)
[2023-08-17 14:30] LABS: INFLUENZA B NAA NEGATIVE (NEGATIVE); RESPIRATORY SYNCYTIAL VIR NAA NEGATIVE (NEGATIVE)
[2023-08-17 17:53] LABS: INR 1.17 (0.80-1.30); PROTIME 14.5 Sec (11.2-14.2)
[2023-08-17 17:55] LABS: PARTIAL THROMBOPLASTIN TIME 24.1 Sec (22.9-41.3)
[2023-08-18 06:12] LABS: BASOPHILS 0.8 % (0-2); EOSINOPHILS 1.9 % (0-6); HEMATOCRIT 39.1 % (35.0-50.0); HEMOGLOBIN 13.2 g/dL (12.0-18.0); LYMPHOCYTES 38.3 % (24-44); MCHC 33.7 g/dl (30-36); MCV 83.1 fl (81-99); MONOCYTES 8.7 % (0-12); NEUTROPHILS 50.3 % (39-80); PLATELET COUNT 193 K/uL (140-440); RBC 4.71 M/ul (4.3-5.7); RDW 14.7 (10.5-15.0)
[2023-08-18 10:05] VITALS: BP 110/80
--- NOTE | 2023-08-18 14:40 | EKG ---
[facility] [address] [facility] [place] [address] Signed Sinus tachycardia Cannot rule out Anterior infarct , age undetermined Abnormal ECG No previous ECGs available Confirmed by LEIGH MOJICA MD ([id number]) on 08/18/2023 2:40:31 PM Electronically Signed By: LEIGH MOJICA 08/18/23 1440 PATIENT NAME: CARMEL OCONNOR GRIFFIN Electrocardiogram DATE OF : 87 PHYSICIAN: LEIGH MOJICA REPORT #: [id number] REPORT IS CONFIDENTIAL AND NOT TO BE RELEASED WITHOUT AUTHORIZATION
== END 2023-08-18 08:25 | disposition short-term general hospital (02) ==
LOC: ED 11:25
PROVIDERS: Emergency Medicine
DX: I26.99 Other pulmonary embolism without acute cor pulmonale (principal); Z11.52 Encounter for screening for COVID-19; J45.909 Unspecified asthma, uncomplicated; Z79.899 Other long term (current) drug therapy
CPT/HCPCS: 36415; 71045; 71260; 80053; 83735; 83880; 84484; 84703; 85025; 85379; 85610; 85730; 87502; 93005; 93010; 94640; 96366; 96376; 99285-25; C9803; J1644; U0002

== ENCOUNTER 2023-08-27 10:18 | Emergency (ER) | payer OTHER ==
[~2023-08-27] VITALS: Ht 172.7 cm; Wt 187.2 kg
[~2023-08-27 10:18] MED LIST changes: +PHENYTOIN SODI100 MG PO
--- OUTSIDE RECORDS SUMMARY | 2023-08-27 10:26 | XMS ---
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 Brad VISIT COUNT (12 MO.) 4 [facility] [place] TOTAL 4 NOTE: Visits indicate total known visits. ED/UCC VISIT TRACKING (12 MO.) 08/27/2023 10:19 [facility] [place] TYPE: Emergency COMPLAINT: - DIFFICULTY BREATHING 08/17/2023 11:27 [facility] [place] TYPE: Emergency COMPLAINT: - DIFFICULTY BREATHING, LOW 02 SATS DIAGNOSES: - Encounter for screening for COVID-19 - Other chest pain - Other [facility] (current[facility] drug therapy - Other pulmonary embolism without acute cor pulmonale - Unspecified asthma, uncomplicated 05/31/2023 10:37 [facility] [place] TYPE: Emergency COMPLAINT: - SEIZURE DIAGNOSES: - Abrasion of oral cavity, initial encounter - Epilepsy, unspecified, not intractable, without status epilepticus - Other generalized epilepsy and epileptic syndromes, not intractable, without status epilepticus - Other press tender long goods (current) drug therapy - Unspecified convulsions 02/16/2023 12:05 [facility] [place] TYPE: Emergency COMPLAINT: - SEIZURE DIAGNOSES: - Other press tender long goods (current) drug therapy - Unspecified convulsions INPATIENT VISIT TRACKING (12 MO.) No inpatient visits to display in this time frame [id number]
[2023-08-27 11:38] LABS: BILIRUBIN, URINE NEGATIVE (negative); BLOOD/HGB, URINE LARGE (Negative); KETONE, URINE NEGATIVE (Negative); LEUK ESTERASE, URINE NEGATIVE (negative); NITRITE, URINE NEGATIVE (negative); PH, URINE 5.5 (5-7)
[2023-08-27 11:43] LABS: BASOPHILS 0.7 % (0-2); EOSINOPHILS 3.6 % (0-6); HEMATOCRIT 39.2 % (35.0-50.0); HEMOGLOBIN 12.6 g/dL (12.0-18.0); LYMPHOCYTES 45.7 % (24-44); MCH 27.2 (27-36); MCHC 32.2 g/dl (30-36); MCV 84.5 fl (81-99); PLATELET COUNT 222 K/uL (140-440); RBC 4.64 M/ul (4.3-5.7); RDW 14.5 (10.5-15.0)
[2023-08-27 11:47] LABS: EPITHELIAL CELLS, URINE SQUAMOUS 2+ /lpf (0-1+); RED BLOOD CELLS, URINE >50 /hpf (0-5); WHITE BLOOD CELLS, URINE 0-1 /HPF (0-5)
[2023-08-27 11:48] LABS: BACTERIA, URINE NONE SEEN /hpf (negative); CASTS, URINE NONE SEEN \\lpf; COLLECTION TYPE, URINE CLEAN CATCH; CRYSTALS, URINE NONE SEEN (0-1+); REFLEX CULTURE, URINE No (No)
[2023-08-27 11:54] LABS: INR 1.09 (0.80-1.30); PROTIME 13.7 Sec (11.2-14.2)
[2023-08-27 12:01] LABS: ALBUMIN 3.5 g/dL (3.4-5.0); ALBUMIN/GLOBULIN RATIO 0.9 (1.1-2.4); ANION GAP 13.7 (7-21); BILIRUBIN, TOTAL 0.3 ng/dL (0.2-1.0); BUN/CREATININE RATIO 16.66 (6.0-28.6); CALCIUM 9.1 mg/dL (8.5-10.1); CREATININE, SERUM 1.02 mg/dL (0.55-1.02); MAGNESIUM 2.1 mg/dL (1.8-2.4); POTASSIUM 3.7 mmol/L (3.5-5.1); PROTEIN, TOTAL 7.4 g/dL (6.4-8.2)
[2023-08-27 15:00] VITALS: BP 121/82
--- NOTE | 2023-08-27 21:46 | EKG ---
[facility] [address] [place] [address] Signed Normal sinus rhythm Minimal voltage criteria for LVH, may be normal variant ( R in aVL ) Borderline ECG When compared with ECG of 17-AUG-2023 13:46, No significant change was found Confirmed by Ameena Lemus MD () on 08/27/2023 9:46:18 PM Electronically Signed By: AMEENA LEMUS MD 08/27/23 2146 PATIENT NAME: CARMEL OCONNOR GRIFFIN Electrocardiogram DATE OF : 87 PHYSICIAN: AMEENA LEMUS MD REPORT #: [id number] REPORT IS CONFIDENTIAL AND NOT TO BE RELEASED WITHOUT AUTHORIZATION
== END 2023-08-27 14:55 | disposition home or self-care (01) ==
LOC: ED 10:18
PROVIDERS: Emergency Medicine
DX: J98.11 Atelectasis (principal); Z20.822 Contact with and (suspected) exposure to COVID-19; J45.909 Unspecified asthma, uncomplicated; G40.909 Epilepsy, unspecified, not intractable, without status epilepticus; Z79.899 Other long term (current) drug therapy; Z79.2 Long term (current) use of antibiotics
CPT/HCPCS: 36415; 71045; 80053; 81001; 83735; 84484; 84703; 85025; 85610; 93005; 93010; 94640; 94667; 99285-25; C9803; U0002

== ENCOUNTER 2024-01-19 14:15 | Emergency (ER) | payer OTHER ==
[~2024-01-19] VITALS: Ht 172.7 cm; Wt 179.0 kg
[~2024-01-19 14:15] MED LIST changes: +AZITHROMYCIN250 MG PO; +DIASTAT ACUDIAL1 EA PR; +ELIQUIS5 MG PO; +HYDROCODON-ACE1 EA11 PO; +ONDANSETRON ODT8 MG PO; +OXYBUTYNIN CHLOR5 M1 PO
--- OUTSIDE RECORDS SUMMARY | 2024-01-19 14:18 | XMS ---
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 Technical Sales Advisor Events No recent Security Events currently on file CRITERIA MET - 6 ED Visits in 6 Months - [facility] CARE PROVIDERS -Rob- Dentist: [employer] [facility] PHONE: [phone] DAMON BELTRAN National Van Truck Driver Current PHONE: Unknown BEATRIS LOMBARDI Registered Nurse Current PHONE: Unknown NEENA SPENCER Nurse Practitioner: Family Current PHONE: Unknown Cheyenne has no Care Guidelines for this patient. Brad VISIT COUNT (12 MO.) 8 [facility] [place] TOTAL 8 NOTE: Visits indicate total known visits. ED/UCC VISIT TRACKING (12 MO.) 01/19/2024 14:16 [facility] [place] TYPE: Emergency COMPLAINT: - ALTERED LOC [facility]23 17:[facility] [place] [facility]: Emergency COMPLAINT: - SEIZURE DIAGNOSES: - Chronic pansinusitis - Epilepsy, unspecified, not intractable, without status epilepticus - extermination supervisor (current) use of anticoagulants - Other generalized epilepsy and epileptic syndromes, not intractable, without status epilepticus - Other skilled nursing (current) drug therapy - Unspecified asthma, uncomplicated 11/16/2023 15:20 [facility] [place] [facility] Emergency COMPLAINT: - COLD SYMPTOMS DIAGNOSES: - Cough, unspecified - Epilepsy, unspecified, not intractable, without status epilepticus - extermination supervisor (current) use of anticoagulants - Other disturbances of smell and taste - Other emt intermediate (current) drug therapy - Unspecified asthma, uncomplicated - Viral infection, unspecified 09/03/2023 15:[address] [facility] [place] TYPE: Emergency COMPLAINT: - CHEST PAIN DIAGNOSES: - Chest pain on breathing - Epilepsy, unspecified, not intractable, without status epilepticus - extermination supervisor (current) use of anticoagulants - Other skilled nursing (current) drug therapy - Personal history of other infectious and parasitic diseases - Personal history of pulmonary embolism - Pleurisy - Unspecified asthma, uncomplicated 08/27/2023 10:19 [facility] [place] TYPE: Emergency COMPLAINT: - DIFFICULTY BREATHING DIAGNOSES: - Atelectasis - Contact with and (suspected) exposure to COVID-19 - Epilepsy, unspecified, not intractable, without status epilepticus - correction (current) use of antibiotics - Other emt intermediate (current) drug therapy - Shortness of breath - Unspecified asthma, uncomplicated 08/17/2023 11:27 [facility] [place] TYPE: Emergency COMPLAINT: - DIFFICULTY BREATHING, LOW 02 SATS DIAGNOSES: - Encounter for screening for COVID-19 - Other chest pain - Other emt intermediate (current) drug therapy - Other pulmonary embolism without acute cor pulmonale - Unspecified asthma, uncomplicated 05/31/2023 10:[address] [facility] TYPE: Emergency COMPLAINT: - SEIZURE DIAGNOSES: - Abrasion of oral cavity, initial encounter - Epilepsy, unspecified, not intractable, without status epilepticus - Other generalized epilepsy and epileptic syndromes, not intractable, without status epilepticus - Other emt intermediate (current) drug therapy - Unspecified convulsions 02/16/2023 12:05 [facility] [place] TYPE: Emergency COMPLAINT: - SEIZURE DIAGNOSES: - Other emt intermediate (current) drug therapy - Unspecified convulsions INPATIENT VISIT TRACKING (12 MO.) No inpatient visits to display in this time frame [id number]
[2024-01-19] MEDS ORDERED: diazePAM 10 MG/2 ML SYR IV ONE (14:45)
[2024-01-19 14:46] LABS: BASOPHILS 0.6 % (0-2); HEMATOCRIT 41.6 % (35.0-50.0); HEMOGLOBIN 13.6 g/dL (12.0-18.0); LYMPHOCYTES 40.4 % (24-44); MCH 26.7 (27-36); MCHC 32.8 g/dl (30-36); MCV 81.4 fl (81-99); MONOCYTES 6.3 % (0-12); NEUTROPHILS 49.7 % (39-80); PLATELET COUNT 209 K/uL (140-440); RBC 5.11 M/ul (4.3-5.7); RDW 16.2 (10.5-15.0)
[2024-01-19 14:59] LABS: ALBUMIN 3.9 g/dL (3.4-5.0); ALBUMIN/GLOBULIN RATIO 0.89 (1.1-2.4); ALCOHOL, MEDICAL <3 ng/dL (<3); ALKALINE PHOSPHATASE 103 U/L (46-116); ALT (SGPT) 21 U/L (14-59); ANION GAP 17.6 (7-21); AST (SGOT) 13 U/L (15-37); BILIRUBIN, TOTAL 0.4 ng/dL (0.2-1.0); BUN/CREATININE RATIO 17.17 (6.0-28.6); CALCIUM 9.2 mg/dL (8.5-10.1); CARBON DIOXIDE 22 mmol/L (21-32); CHLORIDE 105 mmol/L (98-107); CREATININE, SERUM 0.99 mg/dL (0.55-1.02); GLOMERULAR FILTRATION RATE,EST 75 mL/min (>60); POTASSIUM 3.6 mmol/L (3.5-5.1); PROTEIN, TOTAL 8.3 g/dL (6.4-8.2); UREA NITROGEN 17 mg/dL (7-18)
[2024-01-19] MEDS ORDERED: LACOSAMIDE100 MG PO (15:45)
[2024-01-19] MEDS ORDERED: levETIRAcetam 500 MG/5 ML VIAL IV ONE (16:30)
[2024-01-19] MEDS ORDERED: KETOROLAC TROMETHAMINE 15 MG/ML VIAL IV ONE (17:00)
[2024-01-19 17:23] LABS: BILIRUBIN, URINE NEGATIVE (negative); BLOOD/HGB, URINE NEGATIVE (Negative); KETONE, URINE NEGATIVE (Negative); LEUK ESTERASE, URINE NEGATIVE (negative); NITRITE, URINE NEGATIVE (negative)
[2024-01-19] MEDS ORDERED: fentaNYL citrate 100 MCG/2 ML VIAL IV ONE (17:30)
[2024-01-19 17:38] LABS: AMPHETAMINES, URINE NEGATIVE (NEGATIVE); BARBITURATES, URINE NEGATIVE (NEGATIVE); BENZODIAZEPINE, URINE NEGATIVE (NEGATIVE); BUPRENORPHINE, URINE NEGATIVE (NEGATIVE); CANNABINOID, URINE NEGATIVE (NEGATIVE); COCAINE, URINE NEGATIVE (NEGATIVE); ECSTASY, URINE NEGATIVE (NEGATIVE); FENTANYL, URINE NEGATIVE (NEGATIVE); METHADONE, URINE NEGATIVE (NEGATIVE); OPIATES, URINE NEGATIVE (NEGATIVE); OXYCODONE, URINE NEGATIVE (NEGATIVE); PHENCYCLIDINE, URINE NEGATIVE (NEGATIVE)
[2024-01-19] MEDS ORDERED: propofoL 200 MG/20 ML VIAL IV ONE (18:00)
[2024-01-19 19:40] VITALS: BP 177/115
[2024-02-19] MEDS ORDERED: MINOCYCLINE HCL50 M1 PO (11:41)
[2024-02-19] MEDS ORDERED: TOPAMAX100 MG PO ×2 (11:44→18:03)
[2024-02-19] MEDS ORDERED: CELECOXIB100 MG PO (18:05)
[2024-02-19] MEDS ORDERED: TRAZODONE HCL100 MG PO (18:05)
[2024-02-19] MEDS ORDERED: BUSPIRONE HCL15 MG PO (18:07)
[2024-02-19] MEDS ORDERED: ELIQUIS5 MG PO (18:08)
[2024-02-19] MEDS ORDERED: VIMPAT100 MG PO (18:09)
== END 2024-01-19 19:40 | disposition home or self-care (01) ==
LOC: ED 14:15
PROVIDERS: Emergency Medicine
DX: G40.909 Epilepsy, unspecified, not intractable, without status epilepticus (principal); S43.014A Anterior dislocation of right humerus, initial encounter; X58.XXXA Exposure to other specified factors, initial encounter; Z79.899 Other long term (current) drug therapy; Z79.01 Long term (current) use of anticoagulants
CPT/HCPCS: 23650; 36415; 71045; 73030; 73080; 80053; 80307; 81003; 84703; 85025; 99152; 99284-25; G0480; J1885; J1953; J2704; J3010; J3360

== ENCOUNTER 2024-02-04 13:39 | Emergency (ER) | payer OTHER ==
[~2024-02-04] VITALS: Ht 172.7 cm; Wt 180.3 kg
[~2024-02-04 13:39] MED LIST changes: +LACOSAMIDE100 MG PO
--- OUTSIDE RECORDS SUMMARY | 2024-02-04 13:42 | XMS ---
PreManage Notification: CARMEL OOCNNOR Security Grocery Sacker Events No recent Security Events currently on file CRITERIA MET - 6 ED Visits in 6 Months - [facility] - [facility] - 2 Visits in 30 Days CARE PROVIDERS -, [facility] Dentist: Tennis Player Current [place] PHONE: [phone] -, Rob- Dentist: Tennis Player Current [facility] PHONE: [phone] DAMON BELTRAN Engineering And Scientific Programmer Current PHONE: Unknown BEATRIS LOMBARDI Nurse Current PHONE: Unknown NEENA SPENCER Nurse Practitioner: Current PHONE: Unknown Cheyenne has no Care Guidelines for this patient. [place]ary VISIT COUNT (12 MO.) 9 [facility] [place] TOTAL 9 NOTE: Visits indicate total known visits. ED/UCC VISIT TRACKING (12 MO.) 02/04/2024 13:41 [facility] [place] TYPE: Emergency COMPLAINT: - RT ARM INJURY 01/19/2024 14:16 [facility] [place] [place] TYPE: Emergency COMPLAINT: - ALTERED LOC DIAGNOSES: - Anterior dislocation of right humerus, initial encounter - Epilepsy, unspecified, not intractable, without status epilepticus - Exposure to other specified factors, initial encounter - ferry terminal supervisor (current) use of anticoagulants - Other correction (current) drug therapy - Unspecified convulsions 11/25/2023 17:41 [facility] [place] [place] TYPE: Emergency COMPLAINT: - SEIZURE DIAGNOSES: - Chronic pansinusitis - Epilepsy, unspecified, not intractable, without status epilepticus - ferry terminal supervisor (current) use of anticoagulants - Other generalized epilepsy and epileptic syndromes, not intractable, without status epilepticus - Other correction (current) drug therapy - Unspecified asthma, uncomplicated 11/16/2023 15:20 [facility] [place] TYPE: Emergency COMPLAINT: - COLD SYMPTOMS DIAGNOSES: - Cough, unspecified - Epilepsy, unspecified, not intractable, without status epilepticus - ferry terminal supervisor (current) use of anticoagulants - Other disturbances of smell and taste - Other termite inspector (current) drug therapy - Unspecified asthma, uncomplicated - Viral infection, unspecified 09/03/2023 15:46 [facility] [place] [facility]: Emergency COMPLAINT: - CHEST PAIN DIAGNOSES: - Chest pain on breathing - Epilepsy, unspecified, not intractable, without status epilepticus - ferry terminal supervisor (current) use of anticoagulants - Other termite inspector (current) drug therapy - Personal history of other infectious and parasitic diseases - Personal history of pulmonary embolism - Pleurisy - Unspecified asthma, uncomplicated 08/27/2023 10:19 [facility] [place] [place] [facility]: Emergency COMPLAINT: - DIFFICULTY BREATHING DIAGNOSES: - Atelectasis - Contact with and (suspected) exposure to COVID-19 - Epilepsy, unspecified, not intractable, without status epilepticus - penitentiary (current) use of antibiotics - Other correction (current) drug therapy - Shortness of breath - Unspecified asthma, uncomplicated 08/17/2023 11:27 [facility] [place] TYPE: Emergency COMPLAINT: - DIFFICULTY BREATHING, LOW 02 SATS DIAGNOSES: - Encounter for screening for COVID-19 - Other chest pain - Other termite inspector (current) drug therapy - Other pulmonary embolism without acute cor pulmonale - Unspecified asthma, uncomplicated 05/31/2023 10:37 [facility] [place] TYPE: Emergency COMPLAINT: - SEIZURE DIAGNOSES: - Abrasion of oral cavity, initial encounter - Epilepsy, unspecified, not intractable, without status epilepticus - Other generalized epilepsy and epileptic syndromes, not intractable, without status epilepticus - Other termite inspector (current) drug therapy - Unspecified convulsions 02/16/2023 12:05 [facility] [place] TYPE: Emergency COMPLAINT: - SEIZURE DIAGNOSES: - Other termite inspector (current) drug therapy - Unspecified convulsions INPATIENT VISIT TRACKING (12 MO.) No inpatient visits to display in this time frame [id number]
[2024-02-04] MEDS ORDERED: KETOROLAC TROMETHAMINE 60 MG/2 ML VIAL IM ONE (19:30)
[2024-02-04] MEDS ORDERED: CYCLOBENZAPRINE10 MG PO (20:18)
[2024-02-04 20:59] VITALS: BP 139/90
== END 2024-02-04 20:53 | disposition home or self-care (01) ==
LOC: ED 13:39
DX: S46.911A Strain of unspecified muscle, fascia and tendon at shoulder and upper arm level, right arm, initial encounter (principal); X58.XXXA Exposure to other specified factors, initial encounter; G40.909 Epilepsy, unspecified, not intractable, without status epilepticus; J45.909 Unspecified asthma, uncomplicated; Z79.899 Other long term (current) drug therapy
CPT/HCPCS: 73030; 99283-25

== ENCOUNTER 2024-03-17 14:17 | Emergency (ER) | payer OTHER ==
[~2024-03-17] VITALS: Ht 172.7 cm; Wt 183.0 kg
[~2024-03-17 14:17] MED LIST changes: +CELECOXIB100 MG PO; +CYCLOBENZAPRINE10 MG PO; +TOPAMAX100 MG PO; +VIMPAT100 MG PO
--- OUTSIDE RECORDS SUMMARY | 2024-03-17 14:18 | XMS ---
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 Breaker Machine Operator Events No recent Security Events currently on file CRITERIA MET - 6 ED Visits in 6 Months - [facility] - [facility] - 2 Visits in 30 Days CARE PROVIDERS -, [facility] Dentist: Military Technology Manager Current [place] PHONE: [phone] -, Rob- Dentist: Military Technology Manager Current [facility] PHONE: [phone] DAMON BELTRAN Commercial Lending Assistant Current PHONE: Unknown BEATRIS LOMBARDI Nurse Current PHONE: Unknown NEENA SPENCER Nurse Practitioner: Current PHONE: Unknown Cheyenne has no Care Guidelines for this patient. [place] VISIT COUNT (12 MO.) 10 [facility] [place] [address] Marva Romero ([facility]) TOTAL 11 NOTE: Visits indicate total known visits. ED/UCC VISIT TRACKING (12 MO.) 03/17/2024 14:17 [facility] [place] TYPE: Emergency COMPLAINT: - SEIZURE 02/19/2024 11:23 [facility] [place] [place] TYPE: Emergency COMPLAINT: - SEIZURE 02/10/2024 13:39 [facility] Marva GONZALES ([facility]) TYPE: Emergency DIAGNOSES: - Personal history of other specified conditions - Seizure (Adult - Prior Hx Of) 02/04/2024 13:41 [facility] [place] TYPE: Emergency COMPLAINT: - RT ARM INJURY DIAGNOSES: - Epilepsy, unspecified, not intractable, without status epilepticus - Exposure to other specified factors, initial encounter - Other skilled nursing (current) drug therapy - Pain in right shoulder - Strain of unspecified muscle, fascia and tendon at shoulder and upper arm level, right arm, initial encounter - Unspecified asthma, uncomplicated 01/19/2024 14:16 [facility] [place] [place] TYPE: Emergency COMPLAINT: - ALTERED LOC DIAGNOSES: - Anterior dislocation of right humerus, initial encounter - Epilepsy, unspecified, not intractable, without status epilepticus - Exposure to other specified factors, initial encounter - long-term (current) use of anticoagulants - Other skilled nursing (current) drug therapy - Unspecified convulsions 11/25/2023 17:41 [facility] [place] TYPE: Emergency COMPLAINT: - SEIZURE DIAGNOSES: - Chronic pansinusitis - Epilepsy, unspecified, not intractable, without status epilepticus - exterminator helper (current) use of anticoagulants - Other generalized epilepsy and epileptic syndromes, not intractable, without status epilepticus - Other skilled nursing (current) drug therapy - Unspecified asthma, uncomplicated 11/16/2023 15:20 [facility] [place] TYPE: Emergency COMPLAINT: - COLD SYMPTOMS DIAGNOSES: - Cough, unspecified - Epilepsy, unspecified, not intractable, without status epilepticus - long-term (current) use of anticoagulants - Other disturbances of smell and taste - Other termite control service representative (current) drug therapy - Unspecified asthma, uncomplicated - Viral infection, unspecified 09/03/2023 15:46 [facility] [place] TYPE: Emergency COMPLAINT: - CHEST PAIN DIAGNOSES: - Chest pain on breathing - Epilepsy, unspecified, not intractable, without status epilepticus - long-term (current) use of anticoagulants - Other skilled nursing (current) drug therapy - Personal history of other infectious and parasitic diseases - Personal history of pulmonary embolism - Pleurisy - Unspecified asthma, uncomplicated 08/27/2023 10:19 [facility] [place] TYPE: Emergency COMPLAINT: - DIFFICULTY BREATHING DIAGNOSES: - Atelectasis - Contact with and (suspected) exposure to COVID-19 - Epilepsy, unspecified, not intractable, without status epilepticus - exterminator helper (current) use of antibiotics - Other termite control service representative (current) drug therapy - Shortness of breath - Unspecified asthma, uncomplicated 08/17/2023 11:27 [facility] [place] TYPE: Emergency COMPLAINT: - DIFFICULTY BREATHING, LOW 02 SATS DIAGNOSES: - Encounter for screening for COVID-19 - Other chest pain - Other skilled nursing (current) drug therapy - Other pulmonary embolism without acute cor pulmonale - Unspecified asthma, uncomplicated 05/31/2023 10:37 [facility] [place] TYPE: Emergency COMPLAINT: - SEIZURE DIAGNOSES: - Abrasion of oral cavity, initial encounter - Epilepsy, unspecified, not intractable, without status epilepticus - Other generalized epilepsy and epileptic syndromes, not intractable, without status epilepticus - Other skilled nursing (current) drug therapy - Unspecified convulsions INPATIENT VISIT TRACKING (12 MO.) 02/19/2024 11:24 [facility] [place] TYPE: Observation COMPLAINT: - SEIZURE DIAGNOSES: - Acidosis, unspecified - Body mass index [BMI] 60.0-69.9, adult - Elevated blood-pressure reading, without diagnosis of hypertension - Epilepsy, unspecified, not intractable, without status epilepticus - Morbid (severe) obesity due to excess calories - Other termite control service representative (current) drug therapy [id number]
[2024-03-17] MEDS ORDERED: VIMPAT200 MG (14:28)
[2024-03-17] MEDS ORDERED: ACETAMINOPHEN 500 MG TAB PO ONE (14:45)
[2024-03-17 15:00] LABS: ALBUMIN 3.1 g/dL (3.4-5.0); ALBUMIN/GLOBULIN RATIO 0.79 (1.1-2.4); ANION GAP 15.9 (7-21); BILIRUBIN, TOTAL 0.3 ng/dL (0.2-1.0); BUN/CREATININE RATIO 20.73 (6.0-28.6); CALCIUM 8.4 mg/dL (8.5-10.1); CREATININE, SERUM 0.82 mg/dL (0.55-1.02); POTASSIUM 3.9 mmol/L (3.5-5.1)
[2024-03-17 15:28] LABS: BASOPHILS 0.6 % (0-2); EOSINOPHILS 1.9 % (0-6); HEMATOCRIT 40.4 % (35.0-50.0); HEMOGLOBIN 13.4 g/dL (12.0-18.0); LYMPHOCYTES 26.6 % (24-44); MCH 27.8 (27-36); MCHC 33.2 g/dl (30-36); MCV 83.6 fl (81-99); MONOCYTES 7.3 % (0-12); NEUTROPHILS 63.6 % (39-80); PLATELET COUNT 188 K/uL (140-440); RBC 4.83 M/ul (4.3-5.7); RDW 14.3 (10.5-15.0)
[2024-03-17 16:16] VITALS: BP 124/76
== END 2024-03-17 16:16 | disposition home or self-care (01) ==
LOC: ED 14:17
PROVIDERS: Emergency Medicine
DX: G40.909 Epilepsy, unspecified, not intractable, without status epilepticus (principal); J45.909 Unspecified asthma, uncomplicated; Z79.899 Other long term (current) drug therapy
CPT/HCPCS: 36415; 80053; 85025; 99284; A9270

== ENCOUNTER 2024-06-16 13:53 | Emergency (ER) | payer OTHER ==
[~2024-06-16] VITALS: Ht 172.7 cm; Wt 172.2 kg
[~2024-06-16 13:53] MED LIST changes: +CENOBAMATE PO; +OXYBUTYNIN CHLO15 MG PO; +SYMPAZAN10 MG PO; +VIMPAT200 MG
--- OUTSIDE RECORDS SUMMARY | 2024-06-16 13:59 | XMS ---
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 Media Consultant Outside Sales Events No recent Security Events currently on file CRITERIA MET - 6 ED Visits in 6 Months - [facility] - 2 Visits in 30 Days CARE PROVIDERS -[facility] Dentist: Motor Pool Clerk Current [place] PHONE: [phone] -, Rob- Dentist: Motor Pool Clerk Current [facility] PHONE: [phone] DAMON BELTRAN Mash Filter Press Operator Current PHONE: Unknown BEATRIS LOMBARDI Registered Nurse Current PHONE: Unknown NEENA SPENCER Nurse Practitioner: Current PHONE: Unknown Cheyenne has no Care Guidelines for this patient. [facility] (12 MO.) [facility] Marva Romero ([facility]) TOTAL 14 NOTE: Visits indicate total known visits. ED/UCC VISIT TRACKING (12 MO.) 06/16/2024 13:53 [facility] [place] TYPE: Emergency COMPLAINT: - SEIZURE 06/14/2024 09:18 [facility] [place] TYPE: Emergency COMPLAINT: - CHEST PAIN 04/25/2024 07:40 [facility] [place] TYPE: Emergency COMPLAINT: - SEIZURE DIAGNOSES: - Epilepsy, unspecified, not intractable, without status epilepticus - Other half-way (current) drug therapy - Unspecified convulsions 04/04/2024 10:35 [facility] [place] TYPE: Emergency COMPLAINT: - SEIZURE DIAGNOSES: - Epilepsy, unspecified, not intractable, without status epilepticus - intermediate designer (current) use of anticoagulants - Other termite exterminator (current) drug therapy - Unspecified asthma, uncomplicated - Unspecified convulsions 03/17/2024 14:17 [facility] [place] TYPE: Emergency COMPLAINT: - SEIZURE DIAGNOSES: - Epilepsy, unspecified, not intractable, without status epilepticus - Other termite exterminator (current) drug therapy - Unspecified asthma, uncomplicated - Unspecified convulsions 02/19/2024 11:23 [facility] [place] TYPE: Emergency COMPLAINT: - SEIZURE 02/10/2024 13:39 [facility] Marva GONZALES ([facility]) TYPE: Emergency DIAGNOSES: - Personal history of other specified conditions - Seizure (Adult - Prior Hx Of) 02/04/2024 13:41 [facility] [place] TYPE: Emergency COMPLAINT: - RT ARM INJURY DIAGNOSES: - Epilepsy, unspecified, not intractable, without status epilepticus - Exposure to other specified factors, initial encounter - Other termite exterminator (current) drug therapy - Pain in right [...] to other specified factors, initial encounter - skilled nursing (current) use of anticoagulants - Other half-way (current) drug therapy - Unspecified convulsions 11/25/2023 17:41 [facility] [place] TYPE: Emergency COMPLAINT: - SEIZURE DIAGNOSES: - Chronic pansinusitis - Epilepsy, unspecified, not intractable, without status epilepticus - intermediate designer (current) use of anticoagulants - Other generalized epilepsy and epileptic syndromes, not intractable, without status epilepticus - Other termite exterminator (current) drug therapy - Unspecified asthma, uncomplicated 11/16/2023 15:20 [facility] [place] TYPE: Emergency COMPLAINT: - COLD SYMPTOMS DIAGNOSES: - Cough, unspecified - Epilepsy, unspecified, not intractable, without status epilepticus - skilled nursing (current) use of anticoagulants - Other disturbances of smell and taste - Other half-way (current) drug therapy - Unspecified asthma, uncomplicated - Viral infection, unspecified 09/03/2023 15:46 [facility] [place] TYPE: Emergency COMPLAINT: - CHEST PAIN DIAGNOSES: - Chest pain on breathing - Epilepsy, unspecified, not intractable, without status epilepticus - skilled nursing (current) use of anticoagulants - Other half-way (current) drug therapy - Personal history of other infectious and parasitic diseases - Personal history of pulmonary embolism - Pleurisy - Unspecified asthma, uncomplicated 08/27/2023 10:19 [facility] [place] TYPE: Emergency COMPLAINT: - DIFFICULTY BREATHING DIAGNOSES: - Atelectasis - Contact with and (suspected) exposure to COVID-19 - Epilepsy, unspecified, not intractable, without status epilepticus - skilled nursing (current) use of antibiotics - Other half-way (current) drug therapy - Shortness of breath - Unspecified asthma, uncomplicated 08/17/2023 11:27 [facility] [place] TYPE: Emergency COMPLAINT: - DIFFICULTY BREATHING, LOW 02 SATS DIAGNOSES: - Encounter for screening for COVID-19 - Other chest pain - Other termite exterminator (current) drug therapy - Other pulmonary embolism without acute cor pulmonale - Unspecified asthma, uncomplicated INPATIENT VISIT TRACKING (12 MO.) 02/19/2024 11:24 [facility] [place] TYPE: Observation COMPLAINT: - SEIZURE DIAGNOSES: - Acidosis, unspecified - Body mass index [BMI] 60.0-69.9, adult - Elevated blood-pressure reading, without diagnosis of hypertension - Epilepsy, unspecified, not intractable, without status epilepticus - Morbid (severe) obesity due to excess calories - Other termite exterminator (current) drug therapy [email or web address]
[2024-06-16] MEDS ORDERED: SODIUM CHLORIDE 0.9% 1,000 ML IV PRN (14:30)
[2024-06-16 14:42] LABS: BASOPHILS 0.3 % (0-2); EOSINOPHILS 0.9 % (0-6); HEMATOCRIT 36.5 % (35.0-50.0); LYMPHOCYTES 13.2 % (24-44); MCH 28.1 (27-36); MCHC 32.8 g/dl (30-36); MCV 85.7 fl (81-99); MONOCYTES 8.6 % (0-12); PLATELET COUNT 161 K/uL (140-440); RBC 4.26 M/ul (4.3-5.7); RDW 14.1 (10.5-15.0)
[2024-06-16 14:51] LABS: ALBUMIN 3.2 g/dL (3.4-5.0); ALBUMIN/GLOBULIN RATIO 0.82 (1.1-2.4); ALCOHOL, MEDICAL <3 ng/dL (<3); ALKALINE PHOSPHATASE 107 U/L (46-116); ALT (SGPT) 10 U/L (14-59); ANION GAP 15.5 (7-21); AST (SGOT) 8 U/L (15-37); BILIRUBIN, TOTAL 0.3 ng/dL (0.2-1.0); BUN/CREATININE RATIO 14.66 (6.0-28.6); CALCIUM 8.7 mg/dL (8.5-10.1); CARBON DIOXIDE 18 mmol/L (21-32); CHLORIDE 107 mmol/L (98-107); CREATININE, SERUM 0.75 mg/dL (0.55-1.02); GLOMERULAR FILTRATION RATE,EST 105 mL/min (>60); MAGNESIUM 1.7 mg/dL (1.8-2.4); POTASSIUM 3.5 mmol/L (3.5-5.1); PROTEIN, TOTAL 7.1 g/dL (6.4-8.2); UREA NITROGEN 11 mg/dL (7-18)
[2024-06-16 17:15] VITALS: BP 157/76
== END 2024-06-16 17:15 | disposition home or self-care (01) ==
LOC: ED 13:53
PROVIDERS: Emergency Medicine
DX: G40.909 Epilepsy, unspecified, not intractable, without status epilepticus (principal); S00.83XA Contusion of other part of head, initial encounter; X58.XXXA Exposure to other specified factors, initial encounter; J45.909 Unspecified asthma, uncomplicated; Z79.899 Other long term (current) drug therapy
CPT/HCPCS: 36415; 70450; 70486; 72125; 80053; 80307; 83735; 84703; 85025; 99284-25; G0480; J7030

== ENCOUNTER 2024-10-17 10:19 | Emergency (ER) | payer OTHER ==
[~2024-10-17] VITALS: Ht 172.7 cm; Wt 197.8 kg
[2024-10-17] MEDS ORDERED: TORSEMIDE20 MG PO (10:42)
[2024-10-17] MEDS ORDERED: XCOPRI PO (10:43)
[2024-10-17] MEDS ORDERED: CLOBAZAM20 MG PO (10:44)
[2024-10-17] MEDS ORDERED: ondansetron HCL 4 MG/2 ML VIAL IV ONE (11:30)
[2024-10-17] MEDS ORDERED: ALBUTEROL SULFATE 0.083% 3 ML VIAL INH ONE (11:30)
[2024-10-17] MEDS ORDERED: DEXAMETHASONE SOD PHOS 10 MG/ML VIAL PO ONE (11:30)
[2024-10-17] MEDS ORDERED: SODIUM CHLORIDE 0.9% 500 ML IV SCH (11:45)
[2024-10-17 12:02] LABS: PH, VENOUS 7.357 (7.31-7.41)
[2024-10-17 12:04] LABS: BASOPHILS 0.3 % (0-2); EOSINOPHILS 1.6 % (0-6); HEMATOCRIT 35.6 % (35.0-50.0); HEMOGLOBIN 11.9 g/dL (12.0-18.0); LYMPHOCYTES 15.9 % (24-44); MCH 28.7 (27-36); MCHC 33.4 g/dl (30-36); MONOCYTES 7.5 % (0-12); NEUTROPHILS 74.7 % (39-80); PLATELET COUNT 149 K/uL (140-440); RBC 4.13 M/ul (4.3-5.7); RDW 14.3 (10.5-15.0)
[2024-10-17 12:34] LABS: ALBUMIN 3.3 g/dL (3.4-5.0); ALBUMIN/GLOBULIN RATIO 0.83 (1.1-2.4); ALKALINE PHOSPHATASE 104 U/L (46-116); ALT (SGPT) 21 U/L (14-59); ANION GAP 14.3 (7-21); AST (SGOT) 8 U/L (15-37); BILIRUBIN, TOTAL 0.4 ng/dL (0.2-1.0); BUN/CREATININE RATIO 16.83 (6.0-28.6); CALCIUM 8.9 mg/dL (8.5-10.1); CARBON DIOXIDE 24 mmol/L (21-32); CHLORIDE 106 mmol/L (98-107); CREATININE, SERUM 1.01 mg/dL (0.55-1.02); GLOMERULAR FILTRATION RATE,EST 73 mL/min (>60); MAGNESIUM 1.8 mg/dL (1.8-2.4); POTASSIUM 3.3 mmol/L (3.5-5.1); PROTEIN, TOTAL 7.3 g/dL (6.4-8.2); UREA NITROGEN 17 mg/dL (7-18)
[2024-10-17 13:07] LABS: CORONAVIRUS COVID-19 AG NEGATIVE (NEGATIVE); INFLUENZA A AG NEGATIVE (NEGATIVE); INFLUENZA B AG NEGATIVE (NEGATIVE)
[2024-10-17] MEDS ORDERED: AZITHROMYCIN 250 MG TAB PO ONE (14:00)
[2024-10-17] MEDS ORDERED: SODIUM CHLORIDE 0.9% 1,000 ML IV PRN (14:00)
[2024-10-17] MEDS ORDERED: CEFTRIAXONE/SODIUM CHLORIDE 1 GM/100 ML PIGGYBACK IV ONE (14:00)
[2024-10-17] MEDS ORDERED: ZITHROMAX250 MG PO (14:26)
[2024-10-17] MEDS ORDERED: VENTOLIN HFA18 GM INH (14:26)
[2024-10-17 15:03] VITALS: BP 118/65
--- NOTE | 2024-10-18 15:05 | EKG ---
[facility] [address] [place] [address] Signed Normal sinus rhythm Minimal voltage criteria for LVH, may be normal variant ( R in aVL ) Borderline ECG When compared with ECG of 14-JUN-2024 09:26, No significant change was found Confirmed by Hero Bell MD ([id number]) on 10/18/2024 3:05:18 PM Electronically Signed By: HERO BELL MD 10/18/24 1505 PATIENT NAME: CARMEL OCONNOR GRIFFIN Electrocardiogram DATE OF : 87 PHYSICIAN: HERO BELL MD REPORT #: [id number] REPORT IS CONFIDENTIAL AND NOT TO BE RELEASED WITHOUT AUTHORIZATION
== END 2024-10-17 15:03 | disposition home or self-care (01) ==
LOC: ED 10:19
PROVIDERS: Emergency Medicine
DX: J18.9 Pneumonia, unspecified organism (principal); D64.9 Anemia, unspecified; E87.6 Hypokalemia; E04.1 Nontoxic single thyroid nodule; G40.909 Epilepsy, unspecified, not intractable, without status epilepticus; J45.909 Unspecified asthma, uncomplicated; Z79.899 Other long term (current) drug therapy
CPT/HCPCS: 36415; 71045; 71260; 80053; 82803; 83735; 83880; 84484; 84703; 85025; 93005; 93010; 94640; 99285-25; J0696; J1100; J2405; J7030; J7040; Q9967

== ENCOUNTER 2024-11-26 10:26 | Emergency (ER) | payer OTHER ==
[~2024-11-26] VITALS: Ht 172.7 cm; Wt 197.8 kg
[~2024-11-26 10:26] MED LIST changes: +CLOBAZAM20 MG PO; +TORSEMIDE20 MG PO; +VENTOLIN HFA18 GM INH; +XCOPRI PO; +ZITHROMAX250 MG PO
[2024-11-26] MEDS ORDERED: ALBUTEROL SULFATE 0.083% 3 ML VIAL INH ONE (11:30)
[2024-11-26] MEDS ORDERED: predniSONE 20 MG TAB PO ONE (11:30)
[2024-11-26] MEDS ORDERED: PREDNISONE20 MG PO (12:43)
[2024-11-26] MEDS ORDERED: AMOX TR-K CLV1 EAC1 PO (12:43)
[2024-11-26] MEDS ORDERED: VENTOLIN HFA18 GM INH (12:43)
[2024-11-26] MEDS ORDERED: AMOXICILLIN/CLAVULANATE K 875 MG TAB PO ONE (12:45)
[2024-11-26 12:53] VITALS: BP 119/68
== END 2024-11-26 12:55 | disposition home or self-care (01) ==
LOC: ED 10:26
DX: J18.9 Pneumonia, unspecified organism (principal); J45.909 Unspecified asthma, uncomplicated; G40.909 Epilepsy, unspecified, not intractable, without status epilepticus; Z79.899 Other long term (current) drug therapy
CPT/HCPCS: 71045; 94640; 99285-25; J7512

== ENCOUNTER 2024-12-15 12:27 | Emergency (ER) | payer OTHER ==
[~2024-12-15] VITALS: Ht 172.7 cm; Wt 197.7 kg
[~2024-12-15 12:27] MED LIST changes: +AMOX TR-K CLV1 EAC1 PO
--- OUTSIDE RECORDS SUMMARY | 2024-12-15 12:33 | XMS ---
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 Events No recent Security Events currently on file CRITERIA MET - [facility] - 2 Visits in 30 Days CARE PROVIDERS -, [facility] Dentist: Drywall Worker Current [place] PHONE: [phone] -Rob- Dentist: Drywall Worker Current [facility] PHONE: [phone] DAMON BELTRAN Grey Goods Tester Current PHONE: Unknown BEATRIS LOMBARDI Registered Nurse Current PHONE: Unknown NEENA SPENCER Nurse Practitioner: Family Current PHONE: Unknown TAMIKO THORNTON [facility] Current PHONE: Unknown Cheyenne has no Care Guidelines for this patient. EGary VISIT COUNT (12 MO.) 11 [facility] [place] [facility] TOTAL 12 NOTE: Visits indicate total known visits. ED/UCC VISIT TRACKING (12 MO.) 12/15/2024 12:27 [facility] [place] TYPE: Emergency COMPLAINT: - CHEST PAIN 11/26/2024 10:26 [facility] [place] TYPE: Emergency COMPLAINT: - COUGH,DIFFICULTY BREATHING DIAGNOSES: - Cough, unspecified - Epilepsy, unspecified, not intractable, without status epilepticus - Other roasterman (current) drug therapy - Pneumonia, unspecified organism - Unspecified asthma, uncomplicated 10/17/2024 10:19 [facility] [place] TYPE: Emergency COMPLAINT: - SHORTNESS OF BREATH DIAGNOSES: - Anemia, unspecified - Epilepsy, unspecified, not intractable, without status epilepticus - Hypokalemia - Nontoxic single thyroid nodule - Other roasterman (current) drug therapy - Pneumonia, unspecified organism - Shortness of breath - Unspecified asthma, uncomplicated 06/16/2024 13:[address] [facility] [place] TYPE: Emergency COMPLAINT: - SEIZURE DIAGNOSES: - Contusion of other part of head, initial encounter - Epilepsy, unspecified, not intractable, without status epilepticus - Exposure to other specified factors, initial encounter - Other fdc (current) drug therapy - Unspecified asthma, uncomplicated - Unspecified convulsions 06/14/2024 09:18 [facility] [place] TYPE: Emergency COMPLAINT: - CHEST PAIN DIAGNOSES: - Body mass index [BMI] 60.0-69.9, adult - Epilepsy, unspecified, not intractable, without status epilepticus - Morbid (severe) obesity due to excess calories - Other chest pain - Other roasterman (current) drug therapy - Unspecified asthma, uncomplicated 04/25/2024 07:[address] [facility] [place] TYPE: Emergency COMPLAINT: - SEIZURE DIAGNOSES: - Epilepsy, unspecified, not intractable, without status epilepticus - Other fdc (current) drug therapy - Unspecified convulsions 04/04/2024 10:35 [facility] [place] TYPE: Emergency COMPLAINT: - SEIZURE DIAGNOSES: - Epilepsy, unspecified, not intractable, without status epilepticus - FPC (current) use of anticoagulants - Other roasterman (current) drug therapy - Unspecified asthma, uncomplicated - Unspecified convulsions 03/17/2024 14:[address] [facility] [address] [place] TYPE: Emergency COMPLAINT: - SEIZURE DIAGNOSES: - Epilepsy, unspecified, not intractable, without status epilepticus - Other roasterman (current) drug therapy - Unspecified asthma, uncomplicated - Unspecified convulsions 02/19/2024 11:23 [facility] TYPE: Emergency COMPLAINT: - SEIZURE 02/10/2024 13:39 [facility] Hand) TYPE: Emergency DIAGNOSES: - Personal history of other specified conditions - Seizure (Adult - Prior Hx Of) 02/04/2024 13:41 [facility] [place] [place] TYPE: Emergency COMPLAINT: - RT ARM INJURY DIAGNOSES: - Epilepsy, unspecified, not intractable, without status epilepticus - Exposure to other specified factors, initial encounter - Other roasterman (current) drug therapy - Pain in right [...] to other specified factors, initial encounter - FPC (current) use of anticoagulants - Other roasterman (current) drug therapy - Unspecified convulsions INPATIENT VISIT TRACKING (12 MO.) 07/04/2024 08:52 [facility] TYPE: Neurology DIAGNOSES: [address]. Epilepsy, unspecified, not intractable, without status epilepticus . Localization-related (focal) (partial) symptomatic epilepsy and epileptic syndromes with complex partial seizures, intractable, without status epilepticus . Unspecified convulsions 02/19/2024 11:[address] [facility] [place] TYPE: Observation COMPLAINT: - SEIZURE DIAGNOSES: - Acidosis, unspecified - Body mass index [BMI] 60.0-69.9, adult - Elevated blood-pressure reading, without diagnosis of hypertension - Epilepsy, unspecified, not intractable, without status epilepticus - Morbid (severe) obesity due to excess calories - Other fdc (current) drug therapy [email or web address]
[2024-12-15] MEDS ORDERED: LIDOCAINE & ANTACID 35 ML BTL PO ONE (13:00)
[2024-12-15] MEDS ORDERED: LIDOCAINE 2% (VISCOUS) HCL 15 ML UDC MT ONE (13:00)
[2024-12-15] MEDS ORDERED: FAMOTIDINE 20 MG/ 2 ML VIAL IV ONE (13:00)
[2024-12-15 13:15] LABS: BASOPHILS 0.5 % (0-2); EOSINOPHILS 3.8 % (0-6); HEMATOCRIT 38.1 % (35.0-50.0); HEMOGLOBIN 12.9 g/dL (12.0-18.0); LYMPHOCYTES 38.1 % (24-44); MCH 28.4 (27-36); MCHC 33.7 g/dl (30-36); MCV 84.1 fl (81-99); MONOCYTES 7.1 % (0-12); NEUTROPHILS 50.5 % (39-80); PLATELET COUNT 180 K/uL (140-440); RBC 4.53 M/ul (4.3-5.7); RDW 14.3 (10.5-15.0)
[2024-12-15 13:25] LABS: INR 1.01 (0.80-1.30); PROTIME 12.7 Sec (11.2-14.2)
[2024-12-15 13:51] LABS: ALBUMIN 3.9 g/dL (3.4-5.0); ALBUMIN/GLOBULIN RATIO 0.98 (1.1-2.4); ALKALINE PHOSPHATASE 116 U/L (46-116); ALT (SGPT) 28 U/L (14-59); AST (SGOT) 10 U/L (15-37); BILIRUBIN, TOTAL 0.2 mg/dL (0.2-1.0); BUN/CREATININE RATIO 22.34 (6.0-28.6); CALCIUM 9.4 mg/dL (8.5-10.1); CARBON DIOXIDE 27 mmol/L (21-32); CREATININE, SERUM 0.94 mg/dL (0.55-1.02); GLOMERULAR FILTRATION RATE,EST 80 mL/min (>60); PROTEIN, TOTAL 7.9 g/dL (6.4-8.2); UREA NITROGEN 21 mg/dL (7-18)
[2024-12-15 13:55] LABS: ANION GAP 14.1 (7-21); CHLORIDE 102 mmol/L (98-107); POTASSIUM 3.1 mmol/L (3.5-5.1)
[2024-12-15 16:54] VITALS: BP 118/69
--- NOTE | 2024-12-17 18:23 | EKG ---
[facility] [address] [place] [address] Signed Normal sinus rhythm Minimal voltage criteria for LVH, may be normal variant ( R in aVL ) Borderline ECG When compared with ECG of 17-OCT-2024 11:21, No significant change was found Confirmed by Hero Bell MD ([id number]) on 12/17/2024 6:23:04 PM Electronically Signed By: HERO BELL MD 12/17/24 1823 PATIENT NAME: CARMEL OCONNOR GRIFFIN Electrocardiogram DATE OF : 87 PHYSICIAN: HERO BELL MD REPORT #: [id number] REPORT IS CONFIDENTIAL AND NOT TO BE RELEASED WITHOUT AUTHORIZATION
== END 2024-12-15 16:56 | disposition home or self-care (01) ==
LOC: ED 12:27
PROVIDERS: Emergency Medicine
DX: R07.9 Chest pain, unspecified (principal); G40.909 Epilepsy, unspecified, not intractable, without status epilepticus; J45.909 Unspecified asthma, uncomplicated; Z79.899 Other long term (current) drug therapy
CPT/HCPCS: 36415; 71045; 71260; 80053; 83735; 84484; 85025; 85610; 93005; 93010; 99285-25; Q9967

== ENCOUNTER 2025-04-01 15:50 | Emergency (ER) | payer OTHER ==
[~2025-04-01] VITALS: Ht 172.7 cm; Wt 190.0 kg
[~2025-04-01 15:50] MED LIST changes: +GAVILAX17 GM PO; +KLOR-CON M2020 MEQ PO; +LEVOFLOXACIN500 MG PO; +LUPRON DEPOT7.5 MG IM; +VALTOCO10 MG/0.1 NS
[2025-04-01] MEDS ORDERED: DEXTROSE 5% 1,000 ML IV PRN (16:30)
[2025-04-01] MEDS ORDERED: IBLOOD GLUCOSE TEST STRIP 1 EA TEST XX PRN (16:30)
[2025-04-01] MEDS ORDERED: DEXTROSE 50% 50 ML SYR IV PRN ×2 (16:30)
[2025-04-01] MEDS ORDERED: GLUCAGON,HUMAN RECOMBINANT 1 MG/ML VIAL SUB-Q PRN (16:30)
[2025-04-01] MEDS ORDERED: ONDANSETRON 4 MG TAB ODT SL ONE (17:15)
[2025-04-01 17:23] LABS: BLOOD/HGB, URINE NEGATIVE (Negative); KETONE, URINE NEGATIVE (Negative); LEUK ESTERASE, URINE NEGATIVE (negative); NITRITE, URINE NEGATIVE (negative)
[2025-04-01 17:27] LABS: BACTERIA, URINE NONE SEEN /hpf (negative); CASTS, URINE NONE SEEN \\lpf; CRYSTALS, URINE NONE SEEN (0-1+); EPITHELIAL CELLS, URINE SQUAMOUS 2+ /lpf (0-1+); REFLEX CULTURE, URINE No (No)
[2025-04-01] MEDS ORDERED: PROCHLORPERAZINE MALEATE 10 MG TAB PO ONE (18:30)
[2025-04-01 18:33] LABS: ALT (SGPT) 29.0 U/L (14-59); AST (SGOT) 21.0 U/L (15-37); GLOMERULAR FILTRATION RATE,EST 100.0 mL/min (>60); PROTEIN, TOTAL 6.7 g/dL (6.4-8.2); UREA NITROGEN 24.0 mg/dL (7-18)
[2025-04-01 18:45] VITALS: BP 118/58
== END 2025-04-01 18:45 | disposition home or self-care (01) ==
LOC: ED 15:50
PROVIDERS: Emergency Medicine
DX: E16.2 Hypoglycemia, unspecified (principal); J45.909 Unspecified asthma, uncomplicated; Z90.710 Acquired absence of both cervix and uterus; Z90.89 Acquired absence of other organs
CPT/HCPCS: 36415; 80053; 81001; 83036; 84703; 85025; 99285; A9270

== ENCOUNTER 2025-06-12 12:04 | Emergency (ER) | payer OTHER ==
[~2025-06-12] VITALS: Ht 172.7 cm; Wt 192.0 kg
[~2025-06-12 12:04] MED LIST changes: +MACROBID 100 M100 MG PO; +POTASSIUM CHLO20 ME1 PO; +PROMETHEGAN25 MG PR; +REGLAN10 MG PO; +ZEPBOUND2.5 MG/0.5 SQ
--- OUTSIDE RECORDS SUMMARY | 2025-06-12 12:10 | XMS ---
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 Line Tender Flakeboard Events No recent Security Events currently on file CRITERIA MET - [facility] - 2 Visits in 30 Days CARE PROVIDERS -, [facility] Dentist: Shipping And Receiving Coordinator Current [place] PHONE: [phone] -Rob- Dentist: Shipping And Receiving Coordinator Current [facility] PHONE: [phone] DAMON BELTRAN Gas Turbine Powerplant Mechanic Current PHONE: Unknown BEATRIS LOMBARDI Registered Nurse Current PHONE: Unknown NEENA SPENCER Nurse Practitioner: Family Current PHONE: Unknown TAMIKO THORNTON [facility] Current PHONE: Unknown Cheyenne has no Care Guidelines for this patient. EGary VISIT COUNT (12 MO.) 9 [facility] [place] TOTAL 9 NOTE: Visits indicate total known visits. ED/UCC VISIT TRACKING (12 MO.) 06/12/2025 12:07 [facility] [place] [place] TYPE: Emergency COMPLAINT: - EYE SWELLING 05/31/2025 14:10 [facility] [place] TYPE: Emergency COMPLAINT: - ABDOMINAL PAIN DIAGNOSES: - Adverse effect of other drugs, medicaments and biological substances, initial encounter - Nausea with vomiting, unspecified - Other ski topper (current) drug therapy - Unspecified abdominal pain - Unspecified asthma, uncomplicated - Urinary tract infection, site not specified 04/01/2025 15:51 [facility] [place] TYPE: Emergency COMPLAINT: - LOW BLOOD SUGAR DIAGNOSES: - Acquired absence of both cervix and uterus - Acquired absence of other organs - Altered mental status, unspecified - Hypoglycemia, unspecified - Unspecified asthma, uncomplicated 01/17/2025 12:35 [place] [place] TYPE: Emergency COMPLAINT: - ABDOMINAL PAIN DIAGNOSES: - Lower abdominal pain, unspecified - Other acute postprocedural pain - Other ski topper (current) drug therapy - Unspecified abdominal pain - Unspecified asthma, uncomplicated 12/15/2024 12:27 [facility] [place] TYPE: Emergency COMPLAINT: - CHEST PAIN DIAGNOSES: - Chest pain, unspecified - Epilepsy, unspecified, not intractable, without status epilepticus - Other fci (current) drug therapy - Unspecified asthma, uncomplicated 11/26/2024 10:26 [facility] [place] TYPE: Emergency COMPLAINT: - COUGH,DIFFICULTY BREATHING DIAGNOSES: - Cough, unspecified - Epilepsy, unspecified, not intractable, without status epilepticus - Other ski topper (current) drug therapy - Pneumonia, unspecified organism - Unspecified asthma, uncomplicated 10/17/2024 10:19 [facility] [place] TYPE: Emergency COMPLAINT: - SHORTNESS OF BREATH DIAGNOSES: - Anemia, unspecified - Epilepsy, unspecified, not intractable, without status epilepticus - Hypokalemia - Nontoxic single thyroid nodule - Other ski topper (current) drug therapy - Pneumonia, unspecified organism - Shortness of breath - Unspecified asthma, uncomplicated 06/16/2024 13:53 [facility] TYPE: Emergency COMPLAINT: - SEIZURE DIAGNOSES: - Contusion of other part of head, initial encounter - Epilepsy, unspecified, not intractable, without status epilepticus - Exposure to other specified factors, initial encounter - Other fci (current) drug therapy - Unspecified asthma, uncomplicated - Unspecified convulsions 06/14/2024 09:18 [facility] TYPE: Emergency COMPLAINT: - CHEST PAIN DIAGNOSES: - Body mass index [BMI] 60.0-69.9, adult - Epilepsy, unspecified, not intractable, without status epilepticus - Morbid (severe) obesity due to excess calories - Other chest pain - Other ski topper (current) drug therapy - Unspecified asthma, uncomplicated INPATIENT VISIT TRACKING (12 MO.) 07/04/2024 08:52 [facility] TYPE: Neurology DIAGNOSES: . Epilepsy, unspecified, not intractable, without status epilepticus . Localization-related (focal) (partial) symptomatic epilepsy and epileptic syndromes with complex partial seizures, intractable, without status epilepticus . Unspecified convulsions [email or web address]
[2025-06-12] MEDS ORDERED: DICLOFENAC SODI75 MG PO (12:31)
[2025-06-12] MEDS ORDERED: SOLIFENACIN SUC10 MG PO (12:31)
[2025-06-12] MEDS ORDERED: POLYMYXIN B-TMP10 ML OS (13:19)
[2025-06-12 13:25] VITALS: BP 138/68
== END 2025-06-12 13:26 | disposition home or self-care (01) ==
LOC: ED 12:04
DX: H57.12 Ocular pain, left eye (principal); J45.909 Unspecified asthma, uncomplicated; Z79.899 Other long term (current) drug therapy
CPT/HCPCS: 99283

== ENCOUNTER 2025-09-07 15:46 | Inpatient (IN) | payer OTHER ==
[~2025-09-07] VITALS: Ht 172.7 cm; Wt 178.0 kg
--- OUTSIDE RECORDS SUMMARY | ~2025-09-07 | XMS | Continuity of Care Document ---
Demographics + + + | Address | [address] | | | [place] [address] | + + + | Preferred Language | Unknown | + + + | Marital Status | Never | + + + | Rastafarian Affiliation | Unknown | + + + | Race | White | + + + | Ethnic Group | Not or | + + + Author + + + | Author | [place] | + + + | Organization | [place] | + + + | Address | [address] | | | [place] [address] | + + + | Phone | | + + + Care Team Providers + + + + | Care Rail Project Engineer Name | Role | Phone | + + + + Unavailable | Unavailable | + + + + Unavailable | Unavailable | + + + + Allergies and Intolerances + + + + + + | date | description | facility | reaction | severity | + + + + + + | 2025-06-12 | UNK | [facility] - | (no reaction) | (no severity) | | 00:00 | [facility] | | | | | | [facility] | | | + + + + + + Encounters No information. Functional Status No information. Immunizations No information. Medications + + + + | date | description | facility | + + + + | (no date) | NORETHINDRONE ACETATE | [facility] [place] [place] [facility] | | | | [facility] | + + + + | (no date) | LEUPROLIDE ACETATE | [facility] [place] [place] [facility] | | | | [facility] | + + + + | (no date) | [facility]IRAM[facility] | | | | [facility] | + + + + | (no date) | POTASSIUM CHLORIDE | [facility] | | | | [facility] | + + + + | (no date) | POTASSIUM CHLORIDE | [facility] | | | | [facility] | + + + + | (no date) | TORSEMIDE | [facility] [place] [place] [facility] | | | | [facility] | + + + + | (no date) | TOPIRAMATE | [facility] | | | | [facility] | + + + + | (no date) | MINOC[facility]CLINE HCL | [facility] | | | | [facility] | + + + + | (no date) | Clobazam | [facility] | | | | [facility] | + + + + | (no date) | Diazepam | [facility] | | | | [facility] | + + + + | 2025-08-29 00:00 | Meclizine HCl | [facility] | | | | [facility] | + + + + | (no date) | Cenobamate | [facility] | | | | [facility] | + + + + | (no date) | Cenobamate | [facility] | | | | [facility] | + + + + | 2025-06-12 00:00 | POLYMYXIN B | [facility] [place] [place] [facility] | | | SULF/TRIMETHOPRIM | [facility] | + + + + | (no date) | cloBAZam | [facility] | | | | [facility] | + + + + | (no date) | Tirzepatide | [facility] | | | | [facility] | + + + + | (no date) | IBUPROFEN | [facility] | | | | [facility] | + + + + | (no date) | LISINOPRIL | [facility] | | | | [facility] | + + + + | (no date) | ESCITALOPRAM OXALATE | [facility] | | | | [facility] | + + + + | (no date) | ARIPIPRAZOLE | [facility] | | | | [facility] | + + + + | (no date) | Solifenacin Succinate | [facility] | | | | [facility] | + + + + | (no date) | AZITHROMYCIN | [facility] [place] [place] [facility] | | | | [facility] | + + + + | (no date) | Lacosamide | [facility] [place] [place] [facility] | | | | [facility] | + + + + | (no date) | LACOSAMIDE | [facility] [place] [place] [facility] | | | | [facility] | + + + + | (no date) | PHENYTOIN SODIUM EXTENDED | [facility] | | | | [facility] | + + + + | (no date) | DICLOFENAC SODIUM | [facility] [place] [place] [facility] | | | | [facility] | + + + + | (no date) | HYDROCODONE | [facility] | | | BIT/ACETAMINOPHEN | [facility] | + + + + | (no date) | METFORMIN HCL | [facility] | | | | [facility] | + + + + | (no date) | OXYBUTYNIN CHLORIDE | [facility] [place] [place] [facility] | | | | [facility] | + + + + | (no date) | BUSPIRONE HCL | [facility] [place] [place] [facility] | | | | [facility] | + + + + | (no date) | POLYETHYLENE GLYCOL 3350 | [facility] [place] [place] [facility] | | | | [facility] | + + + + | (no date) | GUAIFENESIN/CODEINE | [facility] | | | PHOSPHATE | [facility] | + + + + Problems + + + + | date | description | facility | + + + + | 2025-06-12 00:00 | [facility] | | | [facility] | + + + + | 2025-08-29 00:00 | Peripheral vertigo | [facility] | | | | [facility] | + + + + | 2025-08-29 00:00 | Vertigo | [facility] | | | | [facility] | + + + + Procedures No information. Results/Labs No information. Social History +--------+ + + | date | description | facility | +--------+ + + Vital Signs + + + +---------+ | date | measurement | value | units | + + + +---------+ | 2025-08-29 00:00 | BMI | 61.5 | kg/m2 | + + + +---------+ | 2025-08-29 00:00 | BP_diastolic | 63 | mmHg | + + + +---------+ | 2025-08-29 00:00 | BP_systolic | 135 | mmHg | + + + +---------+ | 2025-08-29 00:00 | heart_rate | 74 | /min | + + + +---------+ | 2025-08-29 00:00 | height_metric | 172.72 | cm | + + + +---------+ | 2025-08-29 00:00 | height_standard | 68 | in | + + + +---------+ | 2025-08-29 00:00 | o2_saturation | 99 | % | + + + +---------+ | 2025-08-29 00:00 | respiration_rate | 20 | /min | + + + +---------+ | 2025-08-29 00:00 | | 97.7 | F | | | temperature_standar | | | | | d | | | + + + +---------+ | 2025-08-29 00:00 | weight_metric | 183.501 | kg | + + + +---------+ | 2025-08-29 00:00 | weight_standard | 404.550 | lb | + + + +---------+"
--- OUTSIDE RECORDS SUMMARY | ~2025-09-07 | XMS | Continuity of Care Document ---
Demographics + + + | Address | [address] | | | [place] [address] | + + + | Preferred Language | Unknown | + + + | Marital Status | Never | + + + | Jewish Affiliation | Unknown | + + + | Race | White | + + + | Ethnic Group | Not or | + + + Author + + + | Author | [place] | + + + | Organization | [place] | + + + | Address | [address] | | | [place] [address] | + + + | Phone | | + + + Care Team Providers + + + + | Care Digital Field Service Technician Name | Role | Phone | + [...] [facility] | | | | | | [facility] | | | + + + + + + Encounters No information. Functional Status No information. Immunizations No information. Medications + + + + | date | description | facility | + + + + | (no date) | NORETHINDRONE ACETATE | [facility] | | | | [facility] | + + + + | (no date) | LEUPROLIDE ACETATE | [facility] | | | | [facility] | + + + + | (no date) | TOPIRAMATE | [facility] | | | | [facility] | + + + + | (no date) | POTASSIUM CHLORIDE | [facility] | | | | [facility] | + + + + | (no date) | POTASSIUM CHLORIDE | [facility] | | | | [facility] | + + + + | (no date) | TORSEMIDE | [facility] | | | | [facility] | + + + + | (no date) | TOPIRAMATE | [facility] | | | | [facility] | + + + + | (no date) | MINOCYCLINE HCL | [facility] | | | | [facility] | + + + + | (no date) | Clobazam | [facility] | | | | [facility] | + + + + | (no date) | Diazepam | [facility] | | | | [facility] | + + + + | 2025-08-29 00:00 | Meclizine HCl | [facility] | | | | [facility] | + + + + | (no date) | Cenobamate | [facility] | | | | [facility] | + + + + | (no date) | Cenobamate | [facility] | | | | [facility] | + + + + | 2025-06-12 00:00 | POLYMYXIN B | [facility] | | | SULF/TRIMETHOPRIM | [facility] | + + + + | (no date) | cloBAZam | [facility] | | | | [facility] | + + + + | (no date) | Tirzepatide | [facility] | | | | [facility] | + + + + | (no date) | IBUPROFEN | [facility] | | | | [facility] | + + + + | (no date) | LISINOPRIL | [facility] | | | | [facility] | + + + + | (no date) | ESCITALOPRAM OXALATE | [facility] | | | | [facility] | + + + + | (no date) | ARIPIPRAZOLE | [facility] | | | | [facility] | + + + + | (no date) | Solifenacin Succinate | [facility] | | | | [facility] | + + + + | (no date) | AZITHROMYCIN | [facility] | | | | [facility] | + + + + | (no date) | Lacosamide | [facility] | | | | [facility] | + + + + | (no date) | LACOSAMIDE | [facility] | | | | [facility] | + + + + | (no date) | PHENYTOIN SODIUM EXTENDED | [facility] | | | | [facility] | + + + + | (no date) | DICLOFENAC SODIUM | [facility] | | | | [facility] | + + + + | (no date) | HYDROCODONE | [facility] | | | BIT/ACETAMINOPHEN | [facility] | + + + + | (no date) | METFORMIN HCL | [facility] | | | | [facility] | + + + + | (no date) | OXYBUTYNIN CHLORIDE | [facility] | | | | [facility] | + + + + | (no date) | BUSPIRONE HCL | [facility] | | | | [facility] | + + + + | (no date) | POLYETHYLENE GLYCOL 3350 | [facility] | | | | [facility] | + + + + | (no date) | GUAIFENESIN/CODEINE | [facility] | | | PHOSPHATE | [facility] | + + + + Problems + + + + | date | description | facility | + + + + | 2025-06-12 00:00 | Pain of left eye | [facility] | | | | [facility] | + + + + | 2025-08-29 00:00 | Peripheral vertigo | [facility] | | | | [facility] | + + + + | 2025-08-29 00:00 | Vertigo | [facility] | | | | [facility] | + + + + Procedures No [...]
--- OUTSIDE RECORDS SUMMARY | ~2025-09-07 | XMS | Continuity of Care Document ---
Demographics + + + | Address | [address] | | | [place] [address] | + + + | Preferred Language | Unknown | + + + | Marital Status | Never | + + + | Hindu Affiliation | Unknown | + + + | Race | White | + + + | Ethnic Group | Not or | + + + Author + + + | Author | [place] | + + + | Organization | [place] | + + + | Address | [address] | | | [place] [address] | + + + | Phone | | + + + Care Team Providers + + + + | Care Armature Balancer Name | Role | Phone | + [...] [facility] | | | | | | [facility] | | | + + + + + + Encounters No information. Functional Status No information. Immunizations No information. Medications + + + + | date | description | facility | + + + + | (no date) | NORETHINDRONE ACETATE | [facility] | | | | [facility] | + + + + | (no date) | LEUPROLIDE ACETATE | [facility] | | | | [facility] | + + + + | (no date) | TOPIRAMATE | [facility] | | | | [facility] | + + + + | (no date) | POTASSIUM CHLORIDE | [facility] | | | | [facility] | + + + + | (no date) | POTASSIUM CHLORIDE | [facility] | | | | [facility] | + + + + | (no date) | TORSEMIDE | [facility] | | | | [facility] | + + + + | (no date) | TOPIRAMATE | [facility] | | | | [facility] | + + + + | (no date) | MINOCYCLINE HCL | [facility] | | | | [facility] | + + + + | (no date) | Clobazam | [facility] | | | | [facility] | + + + + | (no date) | Diazepam | [facility] | | | | [facility] | + + + + | 2025-08-29 00:00 | Meclizine HCl | [facility] | | | | [facility] | + + + + | (no date) | Cenobamate | [facility] | | | | [facility] | + + + + | (no date) | Cenobamate | [facility] | | | | [facility] | + + + + | 2025-06-12 00:00 | POLYMYXIN B | [facility] | | | SULF/TRIMETHOPRIM | [facility] | + + + + | (no date) | cloBAZam | [facility] | | | | [facility] | + + + + | (no date) | Tirzepatide | [facility] | | | | [facility] | + + + + | (no date) | IBUPROFEN | [facility] | | | | [facility] | + + + + | (no date) | LISINOPRIL | [facility] | | | [facility] | + + + + | (no date) | ESCITALOPRAM OXALATE | [facility] | | | | [facility] | + + + + | (no date) | ARIPIPRAZOLE | [facility] | | | | [facility] | + + + + | (no date) | Solifenacin Succinate | [facility] | | | | [facility] | + + + + | (no date) | AZITHROMYCIN | [facility] | | | | [facility] | + + + + | (no date) | Lacosamide | [facility] | | | | [facility] | + + + + | (no date) | LACOSAMIDE | [facility] | | | | [facility] | + + + + | (no date) | PHENYTOIN SODIUM EXTENDED | [facility] | | | | [facility] | + + + + | (no date) | DICLOFENAC SODIUM | [facility] | | | | [facility] | + + + + | (no date) | HYDROCODONE | [facility] | | | BIT/ACETAMINOPHEN | [facility] | + + + + | (no date) | METFORMIN HCL | [facility] | | | | [facility] | + + + + | (no date) | OXYBUTYNIN CHLORIDE | [facility] | | | | [facility] | + + + + | (no date) | BUSPIRONE HCL | [facility] | | | | [facility] | + + + + | (no date) | POLYETHYLENE GLYCOL 3350 | [facility] | | | | [facility] | + + + + | (no date) | GUAIFENESIN/CODEINE | [facility] | | | PHOSPHATE | [facility] | + + + + Problems + + + + | date | description | facility | + + + + | 2025-06-12 00:00 | Pain of left eye | [facility] | | | | [facility] | + + + + | 2025-08-29 00:00 | Peripheral vertigo | [facility] | | | | [facility] | + + + + | 2025-08-29 00:00 | Vertigo | [facility] | | | | [facility] | + + + + Procedures No [...]
[~2025-09-07 15:46] MED LIST changes: +ANTIVERT25 M1 PO; +DICLOFENAC SODI75 MG PO; +POLYMYXIN B-TMP10 ML OS; +SOLIFENACIN SUC10 MG PO; +VITAMIN D21250 MCG PO
--- OUTSIDE RECORDS SUMMARY | 2025-09-07 15:53 | XMS ---
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 PHONE: [phone] [facility] Pediatric[facility] Current CARE SYSTEM \F\ <UNAVAIL> PHONE: [phone] NEENA SPENCER Nurse Practitioner: Family Current PHONE: Unknown Cheyenne has no Care Guidelines for this patient. Brad VISIT COUNT (12 MO.) 9 [facility] [place] TOTAL 9 NOTE: Visits indicate total known visits. ED/UCC VISIT TRACKING (12 MO.) 09/07/2025 15:47 [facility] [place] [place] TYPE: Emergency COMPLAINT: - DIARRHEA 08/29/2025 10:29 [facility] [place] [place] TYPE: Emergency COMPLAINT: - HEADACHE DIAGNOSES: - Dizziness and giddiness - Other snf (current) drug therapy - Other peripheral vertigo, unspecified ear - Unspecified asthma, uncomplicated 06/12/2025 12:07 [facility] [place] TYPE: Emergency COMPLAINT: - EYE SWELLING DIAGNOSES: - Ocular pain, left eye - Other long term acute care registered nurse (current) drug therapy - Unspecified asthma, uncomplicated 05/31/2025 14:10 [facility] [place] [place] TYPE: Emergency COMPLAINT: - ABDOMINAL PAIN DIAGNOSES: - Adverse effect of other drugs, medicaments and biological substances, initial encounter - Nausea with vomiting, unspecified - Other long term acute care registered nurse (current) drug therapy - Unspecified abdominal pain - Unspecified asthma, uncomplicated - Urinary tract infection, site not specified 04/01/2025 15:51 [facility] [place] TYPE: Emergency COMPLAINT: - LOW BLOOD SUGAR DIAGNOSES: - Acquired absence of both cervix and uterus - Acquired absence of other organs - Altered mental status, unspecified - Hypoglycemia, unspecified - Unspecified asthma, uncomplicated 01/17/2025 12:35 [facility] [place] [facility] COMPLAINT: - ABDOMINAL PAIN DIAGNOSES: - Lower abdominal pain, unspecified - Other acute postprocedural pain - Other long term acute care registered nurse (current) drug therapy - Unspecified abdominal pain - Unspecified asthma, uncomplicated 12/15/2024 12:27 [facility] [facility] COMPLAINT: - CHEST PAIN DIAGNOSES: - Chest pain, unspecified - Epilepsy, unspecified, not intractable, without status epilepticus - Other long term acute care registered nurse (current) drug therapy - Unspecified asthma, uncomplicated 11/26/2024 10:26 [facility] [place] TYPE: Emergency COMPLAINT: - COUGH,DIFFICULTY BREATHING DIAGNOSES: - Cough, unspecified - Epilepsy, unspecified, not intractable, without status epilepticus - Other snf (current) drug therapy - Pneumonia, unspecified organism - Unspecified asthma, uncomplicated 10/17/2024 10:[address] [address] [facility] TYPE: Emergency COMPLAINT: - SHORTNESS OF BREATH DIAGNOSES: - Anemia, unspecified - Epilepsy, unspecified, not intractable, without status epilepticus - Hypokalemia - Nontoxic single thyroid nodule - Other snf (current) drug therapy - Pneumonia, unspecified organism - Shortness of breath - Unspecified asthma, uncomplicated INPATIENT VISIT TRACKING (12 MO.) No inpatient visits to display in this time frame [email or web address]
[2025-09-07] MEDS ORDERED: LACTATED RINGER'S 1,000 ML IV ONE (19:30)
[2025-09-07] MEDS ORDERED: FAMOTIDINE 20 MG/ 2 ML VIAL IV ONE (19:30)
[2025-09-07 20:05] LABS: BASOPHILS 0.3 % (0.1-1.2); EOSINOPHILS 2.5 % (0.7-5.8); LYMPHOCYTES 27.3 % (19.3-51.7); MCH 28.9 PG (25.6-32.2); MCHC 32.3 g/dL (32.2-35.5); MCV 89.4 fL (79.4-94.8); MONOCYTES 7.7 % (4.7-12.5); NEUTROPHILS 61.9 % (34.0-71.1); RBC 3.95 M/uL (3.93-5.22)
[2025-09-07 20:11] LABS: ALT (SGPT) 19.0 U/L (14-59); AST (SGOT) 15.0 U/L (15-37); GLOMERULAR FILTRATION RATE,EST 46.0 mL/min (>60); PROTEIN, TOTAL 7.7 g/dL (6.4-8.2); UREA NITROGEN 20.0 mg/dL (7-18)
[2025-09-07] MEDS ORDERED: LACTATED RINGER'S 1,000 ML IV SCH (21:15)
[2025-09-07] MEDS ORDERED: MORPHINE SULFATE 4 MG/ML VIAL IV ONE (21:15)
[2025-09-07] MEDS ORDERED: MESALAMINE PR ONE (21:15)
[2025-09-07] MEDS ORDERED: MORPHINE SULFATE 4 MG/ML VIAL IV PRN (21:15)
[2025-09-07] MEDS ORDERED: PANTOPRAZOLE SODIUM 40 MG TABEC PO ONE (21:15)
--- NOTE | 2025-09-07 21:30 | NUR ---
PT ADMITTED TO ROOM 113 VIA STRETCHER. PT ABLE TO AMBULATE TO STANDING SCALE AND THEN TO BED. DECLINED USE OF BR. ADMISSION HX ENTERED. IVF INITIATED. PT RESTING IN BED, WARM BLANKET PROVIDED. PRIMARY RN UPDATED.
[2025-09-07 21:37] VITALS: BP 128/92
[2025-09-07] MEDS ORDERED: TOPAMAX100 MG PO (21:47)
[2025-09-07] MEDS ORDERED: ZEPBOUND7.5 MG/0.5 SUB-Q (21:48)
[2025-09-07] MEDS ORDERED: HYDROCORTISONE SOD SUCCINATE 100 MG/2 ML VIAL IV SCH (22:00)
--- NOTE | 2025-09-07 22:55 | NUR ---
ASSESSMENT DONE. URINE SAMPLE COLLECTED. SCHEDULED MEDS ADMINISTERED. pt SBA TO THE BR FOR LINE/TUBE MANAGEMENT. pt DENIES ANY NEEDS AT THIS TIME. CALL LIGHT WITHIN REACH.
[2025-09-07] MEDS ORDERED: TOPIRAMATE 25 MG TAB PO ONE (23:00)
[2025-09-07 23:28] LABS: BLOOD/HGB, URINE NEGATIVE (Negative); KETONE, URINE NEGATIVE (Negative); LEUK ESTERASE, URINE NEGATIVE (negative); NITRITE, URINE NEGATIVE (negative)
[2025-09-08] VITALS (10 sets, daily range): BP systolic 103–127; BP diastolic 58–71
--- NOTE | 2025-09-08 01:40 | NUR ---
COOK SEAFOOD OBTAINED VITALS. NO NEW I&O AT THIS TIME. PT STATES NO NEEDS AND CALL LIGHT WITHIN REACH.
--- NOTE | 2025-09-08 01:49 | NUR ---
pt RESTING IN THE BED WITH EYES CLOSED. RR EVEN AND UNLABORED. CALL LIGHT WITHIN REACH. pt NPO AT THIS TIME.
--- NOTE | 2025-09-08 03:57 | NUR ---
pt RESTING IN THE BED WITH EYES CLOSED. RR EVEN AND UNLABORED. CALL LIGHT WITHIN REACH.
[2025-09-08 05:34] LABS: BASOPHILS 0.2 % (0.1-1.2); EOSINOPHILS 1.1 % (0.7-5.8); LYMPHOCYTES 17.1 % (19.3-51.7); MCH 28.5 PG (25.6-32.2); MCHC 32.0 g/dL (32.2-35.5); MCV 89.0 fL (79.4-94.8); MONOCYTES 5.5 % (4.7-12.5); NEUTROPHILS 75.9 % (34.0-71.1); RBC 4.18 M/uL (3.93-5.22)
[2025-09-08 06:01] LABS: ALT (SGPT) 17.0 U/L (14-59); AST (SGOT) 7.0 U/L (15-37); GLOMERULAR FILTRATION RATE,EST 72.0 mL/min (>60); PROTEIN, TOTAL 6.8 g/dL (6.4-8.2); UREA NITROGEN 16.0 mg/dL (7-18)
--- NOTE | 2025-09-08 06:05 | NUR ---
VITAL DONE. IVF INFUSING PER ORDER. SCHEDULED MEDS ADMINISTERED. pt DENIES ANY OTHER NEEDS AT THIS TIME. CALL LIGHT WITHIN REACH.
--- NOTE | 2025-09-08 07:57 | NUR ---
INTO SEE PATIENT. PERSONAL HEALTH INFORMATION REVIEWED. PATIENT LIVES WITH MOTHER, STEP FATHER AND DAUGHTER IN A HOUSE. NO STEPS INTO THE HOME. PATIENT DOES NOT USE WALKER, CANE OR WHEELCHAIR. NO OXYGEN BUT DOES WEAR A CPAP THROUGH [employer]. DRIVES. DENIES DIFFCULTY PAYING UTLITIES OR OBTAINING FOOD. PATIENT MOTHER TO PICK HER UP WHEN MEDICALLY CLEARED FROM THE HOSPITAL. NO FUTHER CM NEEDS.
[2025-09-08] MEDS ORDERED: TOPIRAMATE 100 MG TABLET PO SCH ×3 (11:00→21:00)
--- NOTE | 2025-09-08 11:00 | NUR ---
Patient awake on her phone, no acute distress. Patient reports tolerable pain, no n/v with clear liquid intake. IV fluids infusing per order. Call light within reach.
--- NOTE | 2025-09-08 13:11 | NUR ---
UR CLINICAL REVIEW: [facility] [place], MEETS INPT FOR INFLAMMAROTY BOWEL DISEASE ABDOMINAL PAIN WITH GUARDING AND TENDERNESS, FREQUENT DIARRHEA STOOLS, IV MEDICATIONS, IV FLUIDS, TREND LABS [facility] PPO OBS 09/07/25 @ 2104 ORDER MATCHES REG AUTH PENDING, WILL SEND CLINICALS UPON REQUEST. PLAN TO DC TO HOME WHEN MEDICALLY READY DC REVIEW: 09/09/25
--- NOTE | 2025-09-08 13:38 | NUR ---
LAURA from Dr. Nieto to restart discontinued ER bridge orders for LR @ 125ml/hr, morhpine 2-4mg q2 hrs prn pain and zofran 4mg iv q6prn n/v.
[2025-09-08] MEDS ORDERED: LACTATED RINGER'S 1,000 ML IV SCH ×5 (13:45→14:30)
[2025-09-08] MEDS ORDERED: MORPHINE SULFATE 4 MG/ML VIAL IV PRN ×2 (13:45→14:00)
[2025-09-08] MEDS ORDERED: PANTOPRAZOLE SODIUM 40 MG/10 ML VIAL IV SCH ×2 (13:45→14:00)
[2025-09-08] MEDS ORDERED: MORPHINE SULFATE 10 MG/ML VIAL IV PRN ×3 (13:45→14:30)
[2025-09-08] MEDS ORDERED: KETOROLAC TROMETHAMINE 30 MG/ML VIAL IV PRN ×2 (13:45→14:00)
[2025-09-08] MEDS ORDERED: ACETAMINOPHEN 500 MG TAB PO SCH ×3 (14:00→22:00)
[2025-09-08] MEDS ORDERED: HYDROCORTISONE SOD SUCCINATE 100 MG/2 ML VIAL IV SCH ×2 (14:00)
--- NOTE | 2025-09-08 14:21 | NUR ---
Patient reports 9/10 abdominal pain. Admin morphine 4mg iv at this time.
[2025-09-08] MEDS ORDERED: MESALAMINE 400 MG CAPCR PO SCH ×2 (16:00)
--- NOTE | 2025-09-08 18:43 | NUR ---
pt has fresh ice water and one more jello. garbage removed and room picked up. pt watching tv, no visitors in the room. room dark. call light is within reach and pt has siezure pads on bed due to history of siezure disorder. pt reports needing nothing more at this time.
--- NOTE | 2025-09-08 19:10 | NUR ---
REPORT RECEIVED FROM APRYL RUTH. pt RESTING IN THE BED. BOARD UPDATED. pt DENIES ANY NEEDS AT THIS TIME. CALL LIGHT WITHIN REACH.
--- NOTE | 2025-09-08 20:33 | NUR ---
HEAT WELDER PLASTICS OBTAINED VITALS AND I&O. PT STATES NO NEEDS AT THIS TIME. CALL LIGHT WITHIN REACH.
[2025-09-08] MEDS ORDERED: TOPIRAMATE 200 MG TABLET PO SCH (21:00)
[2025-09-08] MEDS ORDERED: FAMOTIDINE 20 MG/ 2 ML VIAL IV SCH (21:00)
--- NOTE | 2025-09-08 21:30 | NUR ---
ASSESSMENT DONE. SCD'S PLACED ON pt. SCHEDULED MEDS ADMINISTERED. IV ABX INFUSING PER ORDER. IV ASSESSED, WNL. pt DENIES ANY OTHER NEEDS AT THIS TIME. CALL LIGHT WITHIN REACH. HOME MEDS AMINISTERED PER ORDER. BOWEL TONE ACTIVE. pt C/O 01/21 PAIN. SCHEDULED PAIN MEDS ADMINISTERED.
[2025-09-08] MEDS ORDERED: HEParin SOD (PORCINE) 5,000 UNIT/ML SDV SUB-Q SCH ×2 (22:00)
--- NOTE | 2025-09-08 23:04 | NUR ---
pt RESTING IN THE BED. pt DENIES ANY NEEDS AT THIS TIME. CALL LIGHT WITHIN REACH.
--- NOTE | 2025-09-09 01:07 | NUR ---
pt RESTING IN THE BED WITH EYES CLOSED. CPAP ON. RR EVEN AND UNLABORED. CALL LIGHT WITHIN REACH.
--- NOTE | 2025-09-09 03:28 | NUR ---
pt RESTING IN THE BED WITH EYES CLOSED. RR EVEN AND UNLABORED. CALL LIGHT WITHIN REACH.
[2025-09-09 04:52] VITALS: BP 127/73
[2025-09-09 04:56] VITALS: BP 127/73
--- NOTE | 2025-09-09 04:57 | NUR ---
pt CALLED AND C/O 06/23 PAIN. PRN PAIN MEDS ADMINISTERED. VITAL SIGNS DONE. ASSESSMENT DONE. pt DENIES ANY OTHER NEEDS AT THIS TIME. CALL LIGHT WITHIN REACH.
[2025-09-09 05:20] LABS: BASOPHILS 0.7 % (0.1-1.2); EOSINOPHILS 1.5 % (0.7-5.8); LYMPHOCYTES 31.9 % (19.3-51.7); MCH 28.3 PG (25.6-32.2); MCHC 31.8 g/dL (32.2-35.5); MCV 89.2 fL (79.4-94.8); MONOCYTES 7.2 % (4.7-12.5); NEUTROPHILS 58.5 % (34.0-71.1); RBC 3.78 M/uL (3.93-5.22)
[2025-09-09 05:33] LABS: GLOMERULAR FILTRATION RATE,EST 101.0 mL/min (>60); UREA NITROGEN 12.0 mg/dL (7-18)
--- NOTE | 2025-09-09 06:15 | NUR ---
IN RM TO ADINISTER pt SCHEDULED MEDS AND pt C/O 06/23 PAIN. PRN PAIN MEDS ADMINISTERED. IV ABX INFUSING PER ORDER. pt DENIES ANY OTHER NEEDS AT THIS TIME. CALL LIGHT WITHIN REACH.
--- NOTE | 2025-09-09 07:55 | NUR ---
Patient resting in bed, eyes closed, respirations even and non labored, sp02 93% per cpox. Call light within reach.
--- NOTE | 2025-09-09 08:55 | NUR ---
ADMIN MORPHINE 4MG SLOW IV PUSH FOR REPORTS OF 7/10 ABDOMINAL PAIN.
[2025-09-09 09:14] VITALS: BP 130/71
[2025-09-09 13:35] VITALS: BP 136/79
[2025-09-09] MEDS ORDERED: POLYETHYLENE GLYCOL 3350 BOTTLE PO SCH (13:45)
[2025-09-09 14:00] VITALS: BP 136/79
--- NOTE | 2025-09-09 15:30 | NUR ---
IV morphine 4mg admin for reports of 7/10 abdominal pain. Bowel prep started, instructions provided to patient.
[2025-09-09] MEDS ORDERED: XCOPRI PO (15:37)
--- NOTE | 2025-09-09 15:46 | NUR ---
MED REC COMPLETED
--- NOTE | 2025-09-09 18:00 | HP ---
[facility] [address], [place] [address] Signed ADMISSION DATE: 09/07/2025 REASON FOR ADMISSION: New onset proctocolitis. HISTORY OF PRESENT ILLNESS: This 39-year-old morbidly obese woman presents to the emergency room with two days of uncontrolled diarrhea and some blood per rectum. She has had nausea without emesis. Her pain has been rather severe in the left lower abdomen. Evaluation by Dr. Calderon in the emergency room included a CT scan of the abdomen, confirming findings of wall thickening, inflammation of the distal sigmoid and rectum consistent with colitis. The patient has no prior history of diagnosis of colitis nor any family history of colitis, though she does describe a family history of colon cancer in an uncle. She is admitted for further evaluation and care for new onset acute colitis, probably ulcerative colitis. PAST MEDICAL HISTORY: Complex. 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 She takes medications for that. None of which are on our formulary, all of which have been obtained and given to patient from her home stores of medication. PAST SURGICAL HISTORY: 1. She has undergone hysterectomy by laparoscopic approach at [facility] for endometriosis sparing the ovaries and has no further endometriosis problems. 2. Additionally, she has asthma and has a history of pulmonary embolism more than year ago where she was transferred from [facility] to [place] and underwent a procedure, possibly embolectomy. She was on anticoagulation for at least six months thereafter. MEDICATIONS: At admission include; 1. Torsemide. 2. Cenobamate. 3. Clobazam. 4. Aripiprazole. 5. Buspirone. 6. Diazepam. 7. Topiramate. 8. Diclofenac sodium. 9. Solifenacin. Electronically Signed By: ALISA FREDERICK MD 09/09/25 [facility] PATIENT NAME: CARMEL OCONNOR HISTORY AND PHYSICAL DATE OF : 87 REPORT #: [id number] PHYSICIAN: ALISA FREDERICK MD PCP: MATEO RAVI NP REPORT IS CONFIDENTIAL AND NOT TO BE RELEASED WITHOUT AUTHORIZATION [facility] [address] [address] Signed 10. Vitamin D2. SOCIAL HISTORY: She does not work. She does have a daughter who has a seizure disorder. She lives in [place]. REVIEW OF SYSTEMS: She denies any shortness of breath or chest pain. She denies any leg pain. She does have pain in the lower abdomen on the left side. PHYSICAL EXAMINATION: GENERAL: A very morbidly obese white woman, who does not look systemically toxic. VITAL SIGNS: BMI is 59.7 kg/m2, 5 feet 8 inches, 178 kg. NECK: Trachea is midline. There is no jugular venous distention. CHEST: Breath sounds are distant, but clear. HEART: Regular. ABDOMEN: Very massive and nondistended. There is tenderness in the left lower quadrant. EXTREMITIES: Show no clubbing, cyanosis, or edema. LABORATORY STUDIES: Show an initial hematocrit of 6.88, subsequently 4.75, hematocrit 35.3, now 37.2 with platelets initially 164,000, now 160,000. Her Chem profile shows normal electrolytes. Creatinine is 1.02. Magnesium is 2.3 at admission. Liver enzymes appear normal. Albumin 3.1, previously 3.6, lipase 56. Urinalysis is essentially normal. Coag studies show a PTT that is pending. A Protime was currently not obtained in the emergency room. ASSESSMENT: The patient has clinical and radiographic evidence of proctocolitis, likely new onset ulcerative colitis. She has no family history of the same. Certainly, an infectious etiology could account for this. I am treating her as if ulcerative colitis pending colonoscopic evaluation and biopsy. Discussed the issue related to colonoscopy including the risk of bleeding, infection, and perforation. I have initiated the standard therapy for new onset colitis including hydrocortisone 100 mg IV q.8 hours, initiation of mesalamine 800 mg t.i.d., cytoprotection of the stomach with PPI medication, Protonix and the empiric treatment of Flagyl antibiotic on the basis of translocation phenomena and possible underlying infectious etiology of proctitis. We will obtain stool studies as well to assure there is no infectious cause of her problem. Electronically Signed By: ALISA FREDERICK MD 09/09/25 [facility] PATIENT NAME: CARMEL OCONNOR HISTORY AND PHYSICAL DATE OF : [birth year] REPORT #: [id number] PHYSICIAN: ALISA FREDERICK MD PCP: MATEO RAVI NP REPORT IS CONFIDENTIAL AND NOT TO BE RELEASED WITHOUT AUTHORIZATION [address] [address] Signed Alisa Frederick MD JM/MODL /[id number] cc: ELLA Amato [place] Brian Sabowitz, MD Copies: ~ Electronically Signed By: ALISA FREDERICK MD 09/09/25 1800 PATIENT NAME: CARMEL OCONNOR HISTORY AND PHYSICAL DATE OF : [birth year] REPORT #: [id number] PHYSICIAN: ALISA FREDERICK MD PCP: MATEO RAVI NP REPORT IS CONFIDENTIAL AND NOT TO BE RELEASED WITHOUT AUTHORIZATION
--- NOTE | 2025-09-09 19:23 | NUR ---
REPORT RECEIVED FROM DAY SHIFT RN. PT LYING IN BED ALERT AND ORIENTED. DENIES NEEDS. WHITE BOARD UPDATED. CALL LIGHT IN REACH.
[2025-09-09 21:26] VITALS: BP 123/74
--- NOTE | 2025-09-09 21:28 | NUR ---
PT UTILIZES CALL LIGHT. PT UP TO BATHROOMAND BACK TO BED WITH SBA, TOLERATED WELL. SMEAR OF INCONTINENT STOOL PRESENT ON THE CHUX, CHANGED AT THIS TIME. PT PROVIDED WITH WET WIPES. PULL UP ATTEND OFFERED, PT DECLINED. PT HAD VERY SMALL AMOUNT OF LIQUID BROWN STOOL IN COLLECTION HAT. PT INQUIRES REGARDING DIET ORDER, STATES THAT SHE IS HUNGRY. PER MD PROG NOTE, SEVERAL CLEAR LIQUID ITEMS PROVIDED. VS OBTAINED, WNL. PT DENIES FURTHER NEEDS AT THIS TIME. CALL LIGHT IN REACH.
--- NOTE | 2025-09-09 22:30 | NUR ---
EVENING ASSESSMENT COMPLETE. SCHEDULED MEDS ADMIN PER EMAR. PT REPORTS ABD PAIN /. SCHEDULED MEDS GIVEN. DENIES NAUSEA. BOWEL TONES ACTIVE. ABD SOFT. PT TIM CLEAR LIQUIDS. PT HAVING LIQUID BM'S. SCD'S IN PLACE. PT DENIES QUESTIONS OR CONCERNS. CALL LIGHT IN REACH.
--- NOTE | 2025-09-09 22:30 | NUR ---
Assisted Pt SBA from bathroom back to bed. Applied SCDs. Provided orange jello. Obtained stool sample and sent to lab. No other needs expresseed by Pt. Call light left in reach. Bed locked and lowered. Seizure pads applied.
[2025-09-10] VITALS (13 sets, daily range): BP systolic 103–149; BP diastolic 67–86
--- NOTE | 2025-09-10 00:09 | NUR ---
PT RESTING IN BED WITH EYES CLOSED. RESPIRATIONS EVEN. NPO AT THIS TIME. IVF INFUSING WNL. CALL LIGHT IN REACH.
--- NOTE | 2025-09-10 01:46 | NUR ---
PT IN BED RESTING WITH EYES CLOSED. RESPIRATIONS EVEN. CALL LIGHT IN REACH.
--- NOTE | 2025-09-10 03:07 | NUR ---
CALL LIGHT ANSWERED. PT INCONTINENT OF EXTRA LARGE LIQUID BM. UP TO BR TO CLEAN SELF AND HAVE ADDITIONAL LIQUID BM. GOWN AND LINENS CHANGED. BRIEF PROVIDED. BACK TO BED. SCD'S IN PLACE. PT REMAINS NPO. ASSESSMENT UNCHANGED. NO FURTHER NEEDS. CALL LIGHT IN REACH.
--- NOTE | 2025-09-10 04:18 | NUR ---
IV PUMP ALARMING. ISSUE RESOLVED. PT REPORTS ABD PAIN 06/23. PRN FOR PAIN ADMIN PER EMAR. NO FURTHER NEEDS.
[2025-09-10 05:37] LABS: BASOPHILS 0.5 % (0.1-1.2); EOSINOPHILS 0.3 % (0.7-5.8); LYMPHOCYTES 32.1 % (19.3-51.7); MCH 28.9 PG (25.6-32.2); MCHC 32.6 g/dL (32.2-35.5); MCV 88.7 fL (79.4-94.8); MONOCYTES 6.4 % (4.7-12.5); NEUTROPHILS 60.4 % (34.0-71.1); RBC 4.33 M/uL (3.93-5.22)
--- NOTE | 2025-09-10 06:15 | NUR ---
Assisted Pt 1A/SBA from bed to bathroom and back. Re-Applied SCDs. No other needs expressed by Pt. Call light in reach. Bed locked and lowered.
--- NOTE | 2025-09-10 06:24 | NUR ---
VS AND I&O OBTAINED. SCHEDULED MEDS ADMIN PER EMAR WITH SIPS OF WATER. OK'D MEDS WITH SIPS. QUESTIONS ANSWERED REGARDING UPCOMING PROCEDURE. NO FURTHER NEEDS. CALL LIGHT IN REACH.
--- NOTE | 2025-09-10 07:31 | NUR ---
REPORT RECEIVED FROM AC RUTH. PATIENT IN BED, EYES CLOSED, CHEST RISE EVEN AND UNLABORED. CALL LIGHT AND PERSONAL BELONGINGS IN REACH.
--- NOTE | 2025-09-10 07:57 | NUR ---
PATIENT SLEEPING ON MY ENTRY TO ROOM. PATIENT NOW IN BED, EYES OPEN, CHEST RISE EVEN AND UNLABORED. NO GRIMACING OR TENSING VISABLE. PATIENT REPORTS PAIN. ASSESMENT COMPLETE. SCHEDULED MEDICATIONS ADMINISTERED. OFFERED PATIENT TO GET UP TO CHAIR, PATIENT REFUSES AT THIS TIME. CALL LIGHT AND PERSONAL BELONGINGS IN REACH.
--- NOTE | 2025-09-10 10:30 | NUR ---
PATIENT IN BED, ASSISTED PATIENT TO BATHROOM AND BACK TO BED. BED CHANGE COMPLETED. CALL LIGHT IN REACH. PATIENT DENIES CONCERNS.
--- NOTE | 2025-09-10 11:15 | NUR ---
PATIENT IN BED, MEDICATION ADMINISTERED WITH SMALL SIP OF WATER PER EMAR. CALL LIGHT IN REACH
--- NOTE | 2025-09-10 12:36 | NUR ---
PATIENT IN BED, ANESTHESIA AT BEDSIDE. CALL LIGHT AND PERSONAL BELONGINGS IN REACH.
[2025-09-10] MEDS ORDERED: LIDOCAINE HCL 2% 5 ML SDV ONE (12:38)
--- NOTE | 2025-09-10 13:04 | NUR ---
PATIENT OFF UNIT WITH SURGICAL NURSE VIA STRETCHER.
--- NOTE | 2025-09-10 13:36 | NUR ---
09/10/25 1336 Justine Schofield 1332-PT IS DROWSY ON ARRIVAL TO PACU. RESP EVEN AND UNLABORED. O2 SAT IN THE HIGH 90'S ON RA.
--- NOTE | 2025-09-10 14:10 | NUR ---
REPORT RECEIVED FROM SPOOLER RUBBER STRAND. PATIENT BACK TO BED. CALL LIGHT IN REACH.
--- NOTE | 2025-09-10 15:15 | NUR ---
PATIENT IN BED, PROVIDED WITH WARM BLANKETS AT HER REQUEST. PATIENT DENIES CONCERNS AT THIS TIME. CALL LIGHT AND PERSONAL BELONGINGS IN REACH.
[2025-09-10] MEDS ORDERED: predniSONE 10 MG TAB PO SCH (15:45)
--- NOTE | 2025-09-10 16:30 | NUR ---
PATIENT IN BED. VITAL SIGNS COMPLETE. CALL LIGHT IN REACH.
--- NOTE | 2025-09-10 16:44 | NUR ---
PATIENT IN BED, CALL LIGHT IN REACH. MEDICATIONS ADMINISTERED PER EMAR.
--- NOTE | 2025-09-10 17:29 | NUR ---
PATIENT IN BED, CALL LIGHT IN REACH. DINNER AT BEDSIDE.
--- NOTE | 2025-09-10 17:32 | NUR ---
CALL LIGHT ANSWERED. PATIENT WITH IV OCCLUDED. REPOSITIONED ARM AND RESTARTED IV INFUSION, OCCLUSION RESOLVED. CALL LIGHT IN REACH, DINNER AT BEDSIDE.
--- NOTE | 2025-09-10 17:56 | NUR ---
PATIENT IN BED, CALL LIGHT IN REACH.
--- NOTE | 2025-09-10 19:25 | NUR ---
REPORT RECEIVED FROM DAY SHIFT RN. PT LYING IN BED ALERT AND ORIENTED. DENIES NEEDS. WHITE BOARD UPDATED. CALL LIGHT IN REACH.
--- NOTE | 2025-09-10 20:14 | NUR ---
PT WALKED TO BATHROOM. PT HAS NO NEEDS AT THIS TIME. CALL LIGHT WITHIN REACH.
[2025-09-10] MEDS ORDERED: FAMOTIDINE 20 MG TAB PO SCH (21:00)
--- NOTE | 2025-09-10 21:33 | NUR ---
EVENING ASSESSMENT COMPLETE. SCHEDULED MEDS ADMIN PER EMAR. PT REPORTS ABD PAIN 5/10. SCHEDULED PAIN MEDS GIVEN. DENIES NAUSEA. BOWEL TONES ACTIVE. ABD SOFT. CPOX IN PLACE. SpO2 97% ON RA. SCD'S IN PLACE. PT DENIES QUESTIONS OR CONCERNS. CALL LIGHT IN REACH.
--- NOTE | 2025-09-10 23:29 | NUR ---
PT AWAKE IN BED WATCHING TV. SCD'S ADJUSTED. NO FURTHER NEEDS. CALL LIGHT IN REACH.
--- NOTE | 2025-09-11 01:52 | NUR ---
PT IN BED RESTING WITH EYES CLOSED. RESPIRATIONS EVEN. CALL LIGHT IN REACH.
--- NOTE | 2025-09-11 04:14 | NUR ---
PT RESTING IN BED WITH EYES CLOSED. RESPIRATIONS EVEN. CALL LIGHT IN REACH.
[2025-09-11 05:03] VITALS: BP 146/92
--- NOTE | 2025-09-11 05:07 | NUR ---
PT SLEEPING. CALL LIGHT WITHIN REACH.
--- NOTE | 2025-09-11 05:26 | NUR ---
SCHEDULED MEDS ADMIN PER EMAR. PT DENIES PAIN OR NAUSEA. VS AND I&O OBTAINED. PRINTED EDUCATION PROVIDED REGARDING LOW FIBER DIET. PT DENIES FURTHER NEEDS. CALL LIGHT IN REACH.
--- NOTE | 2025-09-11 06:29 | NUR ---
PT RESTING WITH EYES CLOSED. AWAKENS EASILY. SCHEDULED MEDS ADMIN PER EMAR. UP TO BR TO VOID AND HAVE LARGE LIQUID BM. NO BLOOD NOTED. BACK TO BED, TIM WELL. SCD'S IN PLACE. CALL LIGHT IN REACH.
--- NOTE | 2025-09-11 07:19 | NUR ---
REPORT RECEIVED FROM AC RUTH. PATIENT IN BED, CALL LIGHT IN REACH. PATIENT DENIES CONCERNS AT THIS TIME.
--- NOTE | 2025-09-11 07:40 | NUR ---
PATIENT IN BED. ASSESMENT COMPLETE. CALL LIGHT IN REACH
--- NOTE | 2025-09-11 07:53 | NUR ---
PATIENT UP TO CHAIR. SCHEDULED MEDICATIONS GIVEN PER EMAR. CALL LIGHT IN REACH. PATIENT DENIES CONCERNS AT THIS TIME.
[2025-09-11] MEDS ORDERED: PANTOPRAZOLE SODIUM 40 MG TABEC PO SCH (09:00)
--- NOTE | 2025-09-11 09:22 | NUR ---
PATIENT IN CHAIR. CALL LIGHT IN REACH. PATIENT DENIES CONCERNS AT THIS TIME.
--- NOTE | 2025-09-11 09:32 | NUR ---
Brief conversation with pt. She plans on dc to home as soon as she sees Dr. Nieto. No needs.
[2025-09-11 09:50] VITALS: BP 105/68
--- NOTE | 2025-09-11 09:51 | NUR ---
HOURLY ROUNDING PATIENT SITTING INRECLINER CHAIR, NO REQUEST AT THIS TIME. CALL LIGHT HAS BEEN PLACED WITHIN REACH
--- NOTE | 2025-09-11 10:21 | NUR ---
PATIENT IN CHAIR. SCHEDULED MEDICATION ADMINISTERED PER EMAR. CALL LIGHT IN REACH.
[2025-09-11 10:31] VITALS: BP 105/68
[2025-09-11] MEDS ORDERED: METRONIDAZOLE250 MG PO (12:10)
[2025-09-11] MEDS ORDERED: ACETAMINOPHEN500 MG PO (12:10)
[2025-09-11] MEDS ORDERED: PANTOPRAZOLE SO40 MG PO (12:11)
[2025-09-11] MEDS ORDERED: PREDNISONE10 MG PO (12:13)
[2025-09-11] MEDS ORDERED: MESALAMINE800 MG PO (12:15)
[2025-09-11 12:29] VITALS: BP 135/84
--- NOTE | 2025-09-11 12:48 | NUR ---
PATIENT IN CHAIR, FAMILY AT BEDSIDE. IV DC'D WNL, TIP INTACT. VITAL SIGNS COMPLETED. DISCHARGE TEACHING COMPLETED, WRITTEN DISCAHRGE PACKET PROVIDED TO PATIENT. PATIENT DENIES QUESTIONS OR CONCERNS AT THIS TIME.
--- NOTE | 2025-09-11 13:26 | NUR ---
PATIENT IN CHAIR. PATIENT CONFIRMS SHE HAS ALL BELONGINGS INCLUDING MEDICAITONS, CLOTHES, PHONE, PHONE WHARFMASTER, WALLET, AND KEYS. PATIENT OFF UNIT VIA WHEELCHAIR WITH THIS RN. PATIENT LEFT VIA PRIVATE VEHICLE DRIVEN BY HER GREAT AUNT.
--- NOTE | 2025-09-11 21:45 | OR ---
[facility] [address], [place] [address] Signed DATE OF OPERATION: 09/10/2025 SURGEON: Alisa Frederick MD PREOPERATIVE DIAGNOSIS: Bloody diarrhea and CT findings of sigmoid and rectal inflammation. POSTOPERATIVE DIAGNOSIS: Mild to moderate inflammation of rectum and rectosigmoid, remaining colon normal. PROCEDURE: Total colonoscopy with multiple biopsies. ANESTHESIA: Intravenous sedation, propofol infusion, Armando Lewis, PRODUCTION OPERATIONS MANAGER. INDICATION: This is quite morbidly obese white woman 390 pounds and a patient of ELLA Amato, who presented to the emergency room on September 07 with complaints of bloody diarrhea. A CT scan was performed, which showed inflammation of the rectum and rectosigmoid area. Her initial white count was 6.88, hematocrit 35.3, platelets 164,000. Findings are suggestive of inflammatory bowel disease or colitis of some etiology. Stool studies have been ordered and those that have been available include C difficile, which was negative. She was treated empirically as if inflammatory bowel disease and given intravenous hydrocortisone 100 mg IV q.8 hours and started on mesalamine 800 mg p.o. t.i.d. as well as ulcer prophylaxis and Flagyl intravenously administered. She is admitted at this time to undergo colonoscopy, having undergone bowel prep with improved symptoms to assess the etiology of the colitis. The risk of bleeding, infection, and perforation related to colonoscopy was reviewed with her. She understands and wished to proceed. FINDINGS: The prep was quite good. Complete colonoscopy was undertaken for visualization of the cecum. Intubation of the ileum was not forthcoming. Colon was entirely normal proximal to the sigmoid colon from an endoscopic basis. Biopsies were taken throughout to assess for colitis. There was mild to moderate inflammation of the rectum and rectosigmoid, but likely is improved therapy for three days already. DESCRIPTION OF PROCEDURE: The patient was brought to the endoscopy suite and placed in lateral decubitus position, Electronically Signed By: ALISA FREDERICK MD 09/11/25 2145 PATIENT NAME: CARMEL OCONNOR OPERATIVE REPORT DATE OF : 87 REPORT #: [id number] PHYSICIAN: ALISA FREDERICK MD PCP: BRITTNI RAVI NP REPORT IS CONFIDENTIAL AND NOT TO BE RELEASED WITHOUT AUTHORIZATION [facility] [address] [place] [id number] Signed given intravenous sedation with full cardiopulmonary monitoring. Anesthesia was by the PRODUCTION OPERATIONS MANAGER with propofol based on her significant obesity at 390 pounds. Digital rectal examination was normal. Olympus video colonoscope was passed in the rectum and manipulated throughout the colon ultimately intubating the right colon with visualization of the cecum. Biopsies were taken of the right colon. The mucosa appeared normal. Scope was withdrawn and biopsies taken of the transverse colon, left colon, sigmoid and rectosigmoid and rectum. The only area of inflammation, which was mostly manifested the edema and certainly not by ulceration was the rectum and rectosigmoid. Retroflexed view showed no other abnormalities of concern. The scope was removed. The patient was taken to the recovery room in good condition. CONCLUDING DIAGNOSIS: Mild to moderate inflammation of rectum and rectosigmoid. This may or may not represent healing ulcerative colitis; her diagnosis is not yet established. It could be a self-limited colitis as well. PLAN: We will initiate a low-fiber diet, change steroids to oral prednisone and begin oral Flagyl and mesalamine pending biopsy results. MD HERRERA Sanders/VIC /[id number] cc: MD Brittni Mann FNP Copies: ~ Electronically Signed By: ALISA FREDERICK MD 09/11/25 2145 PATIENT NAME: CARMEL OCONNOR [place] OPERATIVE REPORT DATE OF : 87 REPORT #: [id number] PHYSICIAN: ALISA FREDERICK MD PCP: BRITTNI RAVI NP REPORT IS CONFIDENTIAL AND NOT TO BE RELEASED WITHOUT AUTHORIZATION
--- NOTE | 2025-09-12 13:14 | DS ---
[facility] [address] [place], [place] [address] Signed ADMISSION DATE: 09/11/2025 DISCHARGE DATE: 09/11/2025 REASON FOR ADMISSION: Sigmoid and rectal inflammation consistent with colitis with diarrhea and bleeding. HISTORY: This morbidly obese, BMI 59.7, 390 pounds woman presented to emergency room with two days of uncontrolled diarrhea and some blood per rectum. She has had nausea without emesis. Her pain is severe in the left lower abdomen. Evaluation by Dr. Calderon in the emergency room included a CT scan of the abdomen, confirming findings of wall thickening, inflammation of the distal sigmoid and rectum consistent with colitis. She is admitted for further evaluation and care. The patient has no prior history of diagnosis of colitis or family history of ulcerative colitis, Crohn disease or other problem. She does have family history of colon cancer in an uncle. PAST MEDICAL HISTORY: Quite notable for seizure disorder of a hereditary type as does her daughter. She has also had deep venous thrombosis requiring apparent embolectomy performed in [place] in the past few years. She has undergone hysterectomy and laparoscopic approach for endometriosis sparing the ovaries and underlying asthma. PERTINENT PHYSICAL EXAMINATION: GENERAL: Showed a very obese white woman who did not look systemically toxic. VITAL SIGNS: BMI 59.7, height 5 feet 8 inches9, weight 178 kg. HEENT: Trachea midline. CHEST: Clear. HEART: Regular without murmur. ABDOMEN: Massive and nondistended. There is tenderness in left lower quadrant. LABORATORY STUDIES: Showed an initial hematocrit of 6.8, subsequently 4.7, hematocrit of 35.3 and subsequently 37.2, platelets 164,000 followed by 160,000. Normal Chem profile was noted otherwise. Albumin was 3.1. HOSPITAL COURSE: She was admitted with a presumptive diagnosis of new onset probable ulcerative colitis. This is based in part on the clinical appearance of the patient and her x-ray (CT scan) as well as her age. She was initiated on hydrocortisone 100 mg IV q.8 hours, on Electronically Signed By: ALISA FREDERICK MD 09/12/25 1314 PATIENT NAME: CARMEL OCONNOR DISCHARGE SUMMARY DATE OF : 87 REPORT #: [id number] PHYSICIAN: ALISA FREDERICK MD PCP: BRITTNI MCKEON NP REPORT IS CONFIDENTIAL AND NOT TO BE RELEASED WITHOUT AUTHORIZATION [facility] [address] [place], [place] [address] Signed mesalamine 800 mg p.o. t.i.d. cytoprotection of the stomach with Protonix and DVT prophylaxis, particularly given her prior history of DVT and pulmonary embolism as well as the increased risk of thrombotic complications related to inflammatory bowel disease (if ultimately proven). She had prompt improvement of her situation, is able to tolerate a bowel prep and on September 10, 2025 underwent colonoscopy after a bowel prep. She had mild inflammation of the rectum and sigmoid, proximal colon was normal. Biopsies were obtained. She was transitioned to oral antibiotic Flagyl as well as oral steroid prednisone 30 mg daily and mesalamine 800 mg p.o. t.i.d. Of note, stool studies that were initially obtained showed no evidence of C difficile and thus far no evidence of enteric pathogens. Lab results are still pending. These included E coli, shiga toxins, Campylobacter, Salmonella, , etc. She tolerated a low-fiber diet and oral medications and at this point was transitioned to home maintaining a low-fiber diet. FOLLOWUP PLAN: She will return to see me in approximately four weeks at which point, pathology reports will be reviewed and her clinical course reassessed. It is possible that she has no need for long-term anti-inflammatory agents; pathology reports for colon biopsies will be informative in that regard. DISCHARGE MEDICATIONS: Will include: 1. Flagyl 250 mg p.o. t.i.d. with meals, #21, refill zero. 2. Tylenol plain 500 mg two tablets p.o. q.8 hours p.r.n. pain, #30, refill two. 3. Pantoprazole 40 mg p.o. daily, #30, refill six. 4. Prednisone 10 mg tabs three tabs p.o. daily for two weeks, two tabs p.o. 10 mg daily for two weeks, then 10 mg x2 weeks and stop. 5. Mesalamine 800 mg p.o. t.i.d., #60, refill six. 6. She will continue with her usual medications at home include omeprazole 5 mg p.o. at bedtime. 7. Buspirone 15 mg two tablets p.o. at bedtime. 8. Torsemide 20 mg two tablets p.o. daily. 9. Clobazam 20 mg p.o. at bedtime. 10. Valtoco spray 10 mg nasal as needed. 11. Topiramate 300 mg daily. 12. Vitamin D2 1250 mg twice weekly. 13. Solifenacin 10 mg p.o. daily. 14. Tirzepatide Zepbound 0.5 mL subcutaneous weekly. 15. Cenobamate also known as Xcopri 150 mg p.o. daily. Electronically Signed By: AILSA FREDERICK MD 09/12/25 1314 PATIENT NAME: CARMEL OCONNOR DISCHARGE SUMMARY DATE OF : 87 REPORT #: [id number] PHYSICIAN: ALISA FREDERICK MD PCP: BRITTNI MCKEON NP REPORT IS CONFIDENTIAL AND NOT TO BE RELEASED WITHOUT AUTHORIZATION [address] [place] [address] Signed for about one month. She will maintain a low-fiber diet in the meantime. DISCHARGE DIAGNOSES: 1. New onset of colitis of sigmoid and rectum, status post colonoscopy showing mild to moderate inflammation. Biopsies obtained. Normal more proximal colon. 2. Morbid obesity. 3. Distant history of pulmonary embolism requiring operative intervention. 4. Hereditary type seizure disorder. MD HERRERA Sanders/MODL /[id number] cc: Dr. Shin Calderon [facility] Brittni Mckeon NP Copies: ~ Electronically Signed By: ALISA FREDERICK MD 09/12/25 1314 PATIENT NAME: CARMEL OCONNOR DISCHARGE SUMMARY DATE OF : 87 REPORT #: [id number] PHYSICIAN: ALISA FREDERICK MD PCP: BRITTNI MCKEON NP REPORT IS CONFIDENTIAL AND NOT TO BE RELEASED WITHOUT AUTHORIZATION
== END 2025-09-11 13:17 | disposition home or self-care (01) | DRG 392 ==
LOC: ED 15:46 → MS 15:48 → ED 21:04 → MS 21:04
PROVIDERS: Internal Medicine; ADMIT Surgery; ATTEND Surgery
PROC: 0DBE8ZX Excision of Large Intestine, Via Natural or Artificial Opening Endoscopic, Diagnostic (ICD-10-PCS; principal; 2025-09-10 14:00)
DX: K52.9 Noninfective gastroenteritis and colitis, unspecified (principal); G40.802 Other epilepsy, not intractable, without status epilepticus; Z68.43 Body mass index [BMI] 50.0-59.9, adult; E66.01 Morbid (severe) obesity due to excess calories; F41.1 Generalized anxiety disorder; E86.0 Dehydration; Z86.711 Personal history of pulmonary embolism
CPT/HCPCS: 00811; 36415; 74177; 80048; 80053; 81003; 83690; 83735; 85025; 85730; 87045; 87046; 88305; 96365; 96366; 96372; 96374; 96375; 96376; 99284-25; A9270; G0378; J1644; J1720; J1885; J2003; J2270; J2405; J2470; J2704; J7121; J7512; Q9967